=== PATIENT | female | born 1955 | race Caucasian/White ===

== ENCOUNTER 2017-10-09 10:55 | Emergency (ER) | payer OTHER ==
[~2017-10-09] VITALS: Ht 167.6 cm; Wt 54.4 kg
[~2017-10-09 10:55] MED LIST: ABILIFY2 MG PO; LEVSIN-SL0.125 MG SL; ZOFRAN ODT4 M1 SL; ZOLPIDEM TARTRA10 M1 PO
--- NOTE | 2017-10-09 11:29 | ED MVC/FALL/TRAUMA COMPLAINT ---
History of Present Illness General Chief Complaint: Fall Stated Complaint: FALL Source: patient Exam Limitations: no limitations Vital Signs & Intake/Output Vital Signs & Intake/Output Vital Signs Date Time Temp Pulse Resp B/P B/P Pulse O2 O2 Flow FiO2 Mean Ox Delivery Rate 10/09 1256 98.5 59 18 102/54 97 10/09 1102 98.9 64 18 107/53 95 Room Air Allergies Coded Allergies: Penicillins (UNKNOWN 11/16/15) Sulfa (Sulfonamide Antibiotics) (UNKNOWN 11/16/15) acetaminophen (From PERCOCET) (UNKNOWN 11/16/15) codeine (UNKNOWN 11/16/15) morphine (UNKNOWN 11/16/15) oxycodone (From PERCOCET) (UNKNOWN 11/16/15) penicillin V (UNKNOWN 11/16/15) Reconcile Medications Aripiprazole (Abilify) 2 MG TABLET 1 TAB PO DAILY MENTAL HEALTH (Reported) Zolpidem Tartrate 10 MG TABLET 1 TAB PO QPM SLEEP (Reported) Triage Note: BIBA FROM [facility] FOR A FALL. PER PT SHE STEPPED OVER CINDERBLOCKS AND THEY WERE NOT STABLE AND SHE FELL FACE FORWARD OVER THEM. PT C/O CHIN PAIN AND NECK PAIN. UNABLE TO SEE ANY INJURIES TO NECK BECAUSE COLLAR WAS APPLIED BY EMS PRIOR TO ARRIVAL. PT DENIES ANY OTHER COMPLAINTS AT THIS TIME. NEG LOC. UNKNOWN BLOOD THINNERS. PT DENIES CP, SOB, OR DIZZINESS PRIOR TO THE FALL OR AT THIS TIME. Triage Nurses Notes Reviewed? yes Onset: Just prior to arrival Duration: hour(s): Timing: single episode today Severity: moderate Injuries/Fall Location: face, neck Method of Injury: fall Loss of Consciousness: no loss of consciousness HPI: 62yo female with hx of depression and anxiety BIBA to ED after fall at [employer] today. Patient states that she was stepping over a cinder blocks which became unstable and caused her to fall forward. Patient fell forward landing on her chin. She did not lose consciousness or blackout during the fall. Patient reports pain and chin as well as posterior neck. She reports mild frontal headache. Patient did not get up after the fall, EMS evaluated her and placed C- spine collar. Prior to the fall the patient was in her usual state of health. She denies visual changes, abdominal pain, vomiting, back pain, pleuritic pain, chest pain, dyspnea. No dizziness or other symptoms prior to her fall. (Darlyn Tolbert) Past History Travel History Traveled to [place] past 21 day No Medical History Any Pertinent Medical History? see below for history Neurological: NONE EENT: NONE Cardiovascular: HYPOTENSION Respiratory: NONE Gastrointestinal: IBS ? 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 No (Darlyn Tolbert) Review of Systems Review of Systems Constitutional: Reports: no symptoms. Eyes: Reports: no symptoms. Ears, Nose, Throat, Mouth: Reports: no symptoms. Respiratory: Reports: no symptoms. Cardiovascular: Reports: no symptoms. Gastrointestinal/Abdominal: Reports: no symptoms. Genitourinary: Reports: no symptoms. Musculoskeletal: Reports: see HPI. Skin: Reports: no symptoms. Neurological/Psychological: Reports: see HPI. All Other Systems: Reviewed and Negative (Darlyn Tolbert) Physical Exam Physical Exam General Appearance: well developed/nourished, no apparent distress, alert, awake Head: tenderness and mild swelling to chin, no bleeding Eyes: Bilateral: normal appearance, PERRL, EOMI. Ears, Nose, Throat, Mouth: hearing grossly normal, moist mucous membrane Neck: normal inspection, supple, full range of motion, mild c-spine tenderness, no step offs or gross deformity Respiratory: normal breath sounds, chest non-tender, no respiratory distress, lungs clear Cardiovascular: regular rate/rhythm Gastrointestinal: normal bowel sounds, soft, non-tender, no organomegaly Back: normal inspection, normal range of motion, no vertebral tenderness Extremities: normal range of motion Neurologic/Psych: awake, alert, oriented x 3, grocery carrier II-XII nml as tested Skin: intact, normal color, warm/dry Core Measures ACS in differential dx? No CVA/TIA Diagnosis No Sepsis Present: No Sepsis Focused Exam Completed? No (Darlyn Tolbert) Progress Differential Diagnosis: C/T/L spine injury, ICH, mandible fracture, concussion Plan of Care: Patient's CT imaging is within normal limits, no acute abnormality. Patient had mechanical fall prior to arrival. She declines Tylenol and ibuprofen here in the emergency department. Patient is neurologically intact, no focal neurologic deficit, she is answering questions readily. Patient ambulatory here with steady gait. She feels ready to go home at this time. Patient was given strict return precautions. She agrees with the plan of care. Diagnostic Imaging: Viewed by Me: CT Scan. Discussed w/RAD: CT Scan. Radiology Impression: PATIENT: JEREMIAS DEL ROSARIO PRESENT AGE: 62 PATIENT ACCOUNT NO: [id number] : 54 LOCATION: [facility] ORDERING PHYSICIAN: Darlyn WILDE SERVICE DATE: 10/09/17 EXAM TYPE: CAT - CT CERV SPINE WO IV CONTRAST; CT HEAD WO IV CONTRAST; CT MAXILLOFACIAL W/O CON CT HEAD WITHOUT IV CONTRAST CT CERVICAL SPINE WITHOUT IV CONTRAST CT MAXILLOFACIAL WITHOUT IV CONTRAST INDICATION: Status post fall onto face/chin. COMPARISON: Head CT 03/03/2015. TECHNIQUE: Multidetector CT acquisitions of the head, maxillofacial region, and cervical spine were obtained without IV contrast. Multiplanar reformats were acquired and utilized for image interpretation. FINDINGS: HEAD: There is no intracranial hemorrhage, hydrocephalus, extra-axial surface collection, midline shift, or other herniation pattern. Luevano to white matter differentiation is diffusely maintained without evidence of an evolved acute territorial infarct. The basilar cisterns are preserved. No significant soft tissue abnormality. No acute osseous abnormality. MAXILLOFACIAL: The mandible, maxilla, pterygoid plates, nasal bones , zygomatic arches, paranasal sinus calderon, and bony orbits are intact. No acute osseous abnormality within the maxillofacial region. A few posterior left ethmoid air cells are opacified. The remaining paranasal sinuses and the mastoid air cells are clear. There is premandibular/submental soft tissue swelling. CERVICAL SPINE: There is anatomic alignment of the vertebral bodies and posterior elements. There is premandibular/submental soft tissue swelling. There is no acute fracture and there is no acute subluxation. The craniocervical and atlantoaxial articulations are normal. There is no prevertebral soft tissue swelling. No significant soft tissue abnormality within the neck. The visualized lung apices are clear. IMPRESSION: 1. No acute intracranial abnormality. 2. No acute osseous abnormality within the cervical spine. Mild cervical spondylosis. 3. No acute osseous abnormality within the maxillofacial region. There is premandibular/submental soft tissue swelling. DICTATED BY: Zhou Birmingham MD DATE/TIME DICTATED:10/09/171226 PICKING SUPERVISOR:REBECCA DATE/TIME TRANSCRIBED:10/09/171226 CONFIDENTIAL, DO NOT COPY WITHOUT APPROPRIATE AUTHORIZATION. <Electronically signed in Other Vendor System> SIGNED BY: Zhou Birmingham MD 10/09/17 4004 (Darlyn Tolbert) Departure Departure Disposition: HOME OR SELF CARE Condition: Stable Clinical Impression Primary Impression: Fall Qualifiers: Encounter type: initial encounter Qualified Code: W19.XXXA - Unspecified fall, initial encounter Secondary Impressions: Chin contusion Qualifiers: Encounter type: initial encounter Qualified Code: S00.83XA - Contusion of other part of head, initial encounter Referrals: Martina Solis MD (PCP/Family) Additional Instructions: Take Tylenol or ibuprofen as prescribed as needed for pain and swelling. Apply ice to chin intermittently. Any worsening symptoms such as increasing pain, headache, visual changes, vomiting please return to the emergency department. Please note that there might be incidental findings in your evaluation that are unrelated to the current emergency department visit. Please notify your primary care doctor about this emergency department visit in order to obtain and review all of the testing performed so that these incidental findings can be monitored as needed. If you had an x-ray performed, please understand that some fractures may not be seen on the initial set of x-rays. If your symptoms persist you might need a repeat set of x-rays to check for such a fracture. If you had a laceration evaluated, please understand that foreign bodies such as glass or wood may not be visible to the naked eye or on plain x-rays. If the wound becomes red, swollen, increasingly more painful or if there is any drainage from the wound, please have it reevaluated by a physician for the possibility of a retained foreign body. If you're unable to follow up as outlined in the discharge instructions please return to the emergency department. Thank you for choosing the [facility] Emergency Department for your care. It was a pleasure to serve you today. Departure Forms: Customer Survey General Discharge Information (Darlyn Tolbert) PA/REMELT PAN TANK OPERATOR Co-Sign Statement Statement: ED Attending supervision documentation- [] I saw and evaluated the patient. I have also reviewed all the pertinent lab results and diagnostic results. I agree with the findings and the plan of care as documented in the PA's/REMELT PAN TANK OPERATOR's documentation. [X] I have reviewed the ED Record and agree with the PA's/REMELT PAN TANK OPERATOR's documentation. [] Additions or exceptions (if any) to the PAs/REMELT PAN TANK OPERATOR's note and plan are summarized below: [] (Zhou Parmar DO)
--- NOTE | 2017-10-09 12:55 | CT SCAN REPORT ---
CT HEAD WITHOUT IV CONTRAST CT CERVICAL SPINE WITHOUT IV CONTRAST CT MAXILLOFACIAL WITHOUT IV CONTRAST INDICATION: Status post fall onto face/chin. COMPARISON: Head CT 03/03/2015. TECHNIQUE: Multidetector CT acquisitions of the head, maxillofacial region, and cervical spine were obtained without IV contrast. Multiplanar reformats were acquired and utilized for image interpretation. FINDINGS: HEAD: There is no intracranial hemorrhage, hydrocephalus, extra-axial surface collection, midline shift, or other herniation pattern. Luevano to white matter differentiation is diffusely maintained without evidence of an evolved acute territorial infarct. The basilar cisterns are preserved. No significant soft tissue abnormality. No acute osseous abnormality. MAXILLOFACIAL: The mandible, maxilla, pterygoid plates, nasal bones, zygomatic arches, paranasal sinus calderon, and bony orbits are intact. No acute osseous abnormality within the maxillofacial region. A few posterior left ethmoid air cells are opacified. The remaining paranasal sinuses and the mastoid air cells are clear. There is premandibular/submental soft tissue swelling. CERVICAL SPINE: There is anatomic alignment of the vertebral bodies and posterior elements. There is premandibular/submental soft tissue swelling. There is no acute fracture and there is no acute subluxation. The craniocervical and atlantoaxial articulations are normal. There is no prevertebral soft tissue swelling. No significant soft tissue abnormality within the neck. The visualized lung apices are clear. IMPRESSION: 1. No acute intracranial abnormality. 2. No acute osseous abnormality within the cervical spine. Mild cervical spondylosis. 3. No acute osseous abnormality within the maxillofacial region. There is premandibular/submental soft tissue swelling.
[2017-10-09 12:56] VITALS: BP 102/54
== END 2017-10-09 13:32 ==
LOC: ERH 10:55
DX: S00.83XA Contusion of other part of head, initial encounter (principal); M54.2 Cervicalgia; R51 Headache; W19.XXXA Unspecified fall, initial encounter; Y93.9 Activity, unspecified; Y92.512 Supermarket, store or market as the place of occurrence of the external cause

== ENCOUNTER 2017-10-17 16:57 | Inpatient (IN) | payer OTHER ==
[~2017-10-17] VITALS: Ht 167.6 cm; Wt 51.7 kg
--- NOTE | 2017-10-17 18:01 | ED AMS/SEIZURE/WEAK/DIZZY ---
See Addendum History of Present Illness General Chief Complaint: Altered Mental Status Stated Complaint: AMS, INCREASED FALLS Source: patient, family, friend Exam Limitations: no limitations Vital Signs & Intake/Output Vital Signs & Intake/Output Vital Signs Date Time Temp Pulse Resp B/P B/P Pulse O2 O2 Flow FiO2 Mean Ox Delivery Rate 10/17 1752 98.1 10/17 1709 67 18 110/58 97 Room Air Allergies Coded Allergies: Penicillins (UNKNOWN 11/16/15) Sulfa (Sulfonamide Antibiotics) (UNKNOWN 11/16/15) acetaminophen (From PERCOCET) (UNKNOWN 11/16/15) codeine (UNKNOWN 11/16/15) morphine (UNKNOWN 11/16/15) oxycodone (From PERCOCET) (UNKNOWN 11/16/15) penicillin V (UNKNOWN 11/16/15) Reconcile Medications Aripiprazole (Abilify) 2 MG TABLET 1 TAB PO DAILY MENTAL HEALTH (Reported) Zolpidem Tartrate 10 MG TABLET 1 TAB PO QPM SLEEP (Reported) Triage Note: PT BIBA FROM HOME FOR WEAKNESS, POOR APPETITE, SINCE HAVING A TRIP AND FALL LAST FRIDAY. PT SONS TATES STARTING TODAY, BUT UNSURE OF EXACT TIME SHE HAS CALLED HIM HIS UNCLES NAME, BUT IS EASILY REORIENTED. SON ALSO STATES HER SPEACH HAS BEEN SLIGHTLY SLURRED. EMS CINNCINATTI WAS NAEGATIVE. PT ARRIVES ALERT AND ORIENTED, SPEACH CLEAR, AND NO DRIFT IN ARMS AND LEGS. EMS STATES SHE WAS ORTHOSTASIS + AND BS 91. PT ALSO HAS HAD MULTIPLE FALLS SINCE FIRST FALL. NO HEAD OR NECK TRAUMA NOTED Triage Nurses Notes Reviewed? yes Unable To Obtain Hx Due To: patient confusion Onset: Last week Duration: week(s): Timing: multiple episodes today Severity: moderate HPI: 62-year-old female history of depression presenting with family, and a close friend for evaluation of altered mental status and multiple falls. Family reports that patient had a fall 1 week ago at the grocery store, fell onto her face. She was seen here had a workup including a CT head which was negative. Since that time patient has had progressive confusion, generalized weakness, additional falls, and delusions. Patient's son reports that she has been confusing him with his other sibling, waking up his siblings in the middle of the night to go to school, and has been confined largely to bed due to generalized weakness. P.o. intake has also been very poor. Family reports that patient has had depression for years but has never presented in this manner. No r recent abrupt weight loss, fevers, abdominal pain, dysuria, cough, cold or heat intolerance. Patient, family and friend denies that patient uses alcohol or other illicit drugs. She does take Ambien at 6 PM which she has been taking for some time. Past History Travel History Traveled to [place] past 21 day No Medical History Blood Transfusion Hx: No Any Pertinent Medical History? see below for history Neurological: NONE EENT: NONE Cardiovascular: HYPOTENSION Respiratory: NONE Gastrointestinal: IBS ? 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 Yes (H/o Depression) Review of Systems Review of Systems Constitutional: Reports: malaise, weakness (Generalized). Denies: chills, diaphoresis, fever. EENTM: Reports: no symptoms. Respiratory: Reports: no symptoms. Cardiovascular: Reports: no symptoms. GI: Reports: no symptoms. Genitourinary: Reports: no symptoms. Musculoskeletal: Reports: no symptoms. Skin: Reports: no symptoms. Neurological/Psychological: Reports: anxiety, confusion, depressed. Hematologic/Endocrine: Reports: no symptoms. Immunologic/Allergic: Reports: no symptoms. All Other Systems: Reviewed and Negative Physical Exam Physical Exam General Appearance: no apparent distress, alert, awake, thin Head: atraumatic, normal appearance Eyes: Bilateral: normal appearance, PERRL, EOMI. Ears, Nose, Throat: Dry oral mucosa Respiratory: normal breath sounds, chest non-tender, no respiratory distress, quiet respiration, lungs clear Cardiovascular: regular rate/rhythm Gastrointestinal: soft, non-tender, no organomegaly Back: normal inspection, no vertebral tenderness Extremities: normal range of motion, pelvis stable Neurologic/Psych: awake, alert, depressed affect, Difficulty following commands. Unable to perform serial 7's. Remembers 1/3 objects at 5 minutes. There is normal sensation and strength in all 4 extremities. Core Measures ACS in differential dx? No CVA/TIA Diagnosis Yes Sepsis Present: No Sepsis Focused Exam Completed? No Progress Differential Diagnosis: dehydration, electrolyte imbalance, intracranial Hem., intracranial mass/tumor, UTI/pyelo Plan of Care: Orders Procedure Date/time Status URINE DRUG SCREEN FOR ER ONLY 10/17 1734 Active URINALYSIS 10/17 1734 Active TSH REFLEX 10/17 1734 Active AMMONIA 10/17 1734 Active MAGNESIUM 10/17 1734 Active ETHANOL 10/17 1734 Active COMPREHENSIVE METABOLIC PANEL 10/17 1734 Active CBC WITHOUT DIFFERENTIAL 10/17 1734 Complete EKG 10/17 1734 Active Laboratory Tests 10/17/17 1800: Anion Gap 14, Estimated GFR > 60, BUN/Creatinine Ratio 21.1, Glucose 89, Calcium 9.3, Magnesium 2.0, Total Bilirubin 0.4, AST 13 L, ALT 22, Alkaline Phosphatase 58, Ammonia < 9 L, Total Protein 6.5, Albumin 4.1, Globulin 2.4, Albumin/ Globulin Ratio 1.7, TSH &T3 &Free T4 Intrp Pending, CBC w Diff NO MAN DIFF REQ, RBC 4.51, MCV 86.8, MCH 29.1, MCHC 33.6, RDW 13.0, MPV 6.0 L, Gran % 53.6, Lymphocytes % 37.0, Monocytes % 6.7, Eosinophils % 2.3, Basophils % 0.4, Absolute Granulocytes 3.0, Absolute Lymphocytes 2.1, Absolute Monocytes 0.4, Absolute Eosinophils 0.1, Absolute Basophils 0, Serum Alcohol < 10.0 MDM I am concerned about pt's progressive decline, frequent falls and new confusion. On my exam she is distinctily confused, has difficulty at times following even basic instructions, although at other times seems somewhat coherent. Will obtain labs including ammonia, tsh/reflex and urine tox, CT head, UA, CXR. Given progressive decline pt will require admission for further workup of AMS and failure to thrive, and PT evaluation given recent falls. 7:00pm Labs largely unremarkable. Still awaiting thyroid panel and urine. Will need admission for PT evaluation and further workup of AMS. Signed out to Dr. Galvez. CXR Impression: no acute abnormality Pre-Hospital EKG: none Initial ED EKG: normal intervals, normal p-waves, normal sinus rhythm, rate (59) , LAFB Departure Departure Disposition: STILL A PATIENT Condition: Stable Clinical Impression Primary Impression: Altered mental status Qualifiers: Altered mental status type: delirium Qualified Code: R41.0 - Disorientation, unspecified Secondary Impressions: Falls frequently Referrals: Martina Solis MD (PCP/Family) Departure Forms: Customer Survey General Discharge Information
--- NOTE | 2017-10-17 18:07 | RADIOLOGY REPORT ---
EXAMINATION: CHEST 1 VIEW CLINICAL INFORMATION: Altered mental status. COMPARISON: None. TECHNIQUE: An AP view of the chest is provided. FINDINGS: The cardiac silhouette is not enlarged. The mediastinal and hilar contours are unremarkable. There are neither pleural effusions nor pneumothoraces. There are no consolidations. The osseous structures are unremarkable. IMPRESSION: No evidence for acute disease.
--- NOTE | 2017-10-17 18:37 | CT SCAN REPORT ---
EXAMINATION: CT HEAD WITHOUT CONTRAST CLINICAL INFORMATION: Confusion. Falls. Trauma. COMPARISON: 10/09/2017. TECHNIQUE: Contiguous helical images of the brain were obtained without IV contrast. Multiplanar reconstructions were performed. DLP: 604 mGy-cm. FINDINGS: There are no pathologic extra-axial fluid collections. The lateral, third, fourth ventricles are nondilated and concordant with the appearance of the sulci. There is no evidence for acute intraparenchymal hemorrhage or infarct. There is neither mass nor mass effect. There is no shift of midline structures. The paranasal sinuses and mastoid air cells are clear. There are no osseous lesions. IMPRESSION: No evidence for acute intracranial injury.
[2017-10-17 18:51] LABS: ABSOLUTE BASOPHIL COUNT 0 /CUMM (0.0-0.2); ABSOLUTE EOSINOPHIL COUNT 0.1 /CUMM (0.0-0.7); ABSOLUTE LYMPH COUNT 2.1 /CUMM (1.2-3.4); ABSOLUTE MONOCYTE COUNT 0.4 /CUMM (0.10-0.60); BASOPHIL % 0.4 % (0.0-2.0); EOSINOPHIL % 2.3 % (0-5); GRANULOCYTE % 53.6 % (42.2-75.2); HEMATOCRIT 39.1 % (37-47); MEAN CORPUSCULAR HGB 29.1 PG (27.0-31.0); MEAN CORPUSCULAR HGB CONC 33.6 G/DL (33.0-37.0); MEAN CORPUSCULAR VOLUME 86.8 FL (81.0-99.0); PLATELET COUNT 307 /CUMM (130-400); RED BLOOD CELL CT 4.51 /CUMM (4.20-5.40); WHITE BLOOD CELL COUNT 5.6 /CUMM (4.8-10.8)
--- NOTE | 2017-10-17 20:06 | History & Physical ---
Tia Tracy MD 10/17/17 2006: General Information and HPI MD Statement: I have seen and personally examined JEREMIAS DEL ROSARIO and documented this H&P. The patient is a 62 year old F who presented with a patient stated chief complaint of altered mental status Source of Information: patient, family, EMS Exam Limitations: confusion History of Present Illness: This is a 62-year-old female with a past medical history significant for hypothyroidism currently not on medication, several bouts of interstitial cystitis bleeding, irritable bowel syndrome, depression/anxiety that is brought in by ambulance from home for complaints of altered mental status, weakness, and increased falls in the past 2 weeks. Much of the history is given by the patient's son and friend as she is confused. The patient lives at home with her two adopted daughters and a similarly-aged female friend. Patient does have a history of the past of "clusters of falls", but began falling more during the past 2 weeks. 2 weeks ago she fell in the bathtub and 1 week ago she tripped over cinder blocks at [employer]. Both times she denies losing consciousness. When she fell in the bathtub she fell backwards and hit the back of her head. When she fell at [employer] she states that she fell forward, bruising her chin and arms. She denies any overt seizure activity, convulsions. She has had about 6 other falls, 3 of them being yesterday when she slipped on her silk bathrobe out of bed. She denies any loss of vision, focal weakness. Patient denied any cloudy mentation but her son and friend disagree. They state that for the past week she has been more acutely confused. Her son has noticed that her speech has been started on the phone cannot understand her. She has also had questionable headaches for the past 1-2 weeks. She states that her headaches are usually in the front, throbbing, rated 6-9 out of 10, nothing helps, light and sound make them worse. The patient states that she has had double vision for the past 3 years and has had recent workup by an horses or mules teamster who stated that her prescription only changed a slight bit recently, no other issues with her eyes. The patient denies any change in hearing. The patient states that her mood recently has been "good" and rates it a 7 or 8 out of 10. However her family does not see this. They think she is acting depressed. She denies any thoughts of harming herself or others. She has not ingested any drugs or substances, no new medications. Her family states that her mood has been very labile recently. They also state that the patient has had a poor appetite since her falls began and has spent most of her time in bed with 2 white noise machines on at all times of day. In the past she had used these white noise machines only at night. The patient states that she "cannot get out of bed" as she is too weak. The patient's family state that the patient has also been "seeing things wrong". They state that she has been waking up her daughters to go to school at 3 AM and set of 6 AM. They state that the patient knows that it is 3 AM but for some reason thinks it is the time for them to make up for school, no issues with actually reading the time. The son states that she also has been calling him the wrong name. They also state that her speech has been slightly slurred and slow at times. The patient has a history of depression for years. She currently takes Abilify, Wellbutrin, was taking Klonopin until 2 weeks ago when she "just decided that she did not want her life to be like that". She does not know how long she has been taking Wellbutrin and Abilify. The patient also takes Ambien at 6 PM most days. She also takes several vitamins including vitamin D, vitamin C, magnesium , fish oil. The patient denies any nausea, vomiting, abdominal pain, diarrhea, constipation, cough, shortness of breath, chest pain, bleeding, dysuria, hematuria. The patient has had workup before for question of seizure, EEG in 2008 which was normal. The patient's son states that she only rarely uses alcohol, has never used drugs which the patient endorses, and has a very remote history of smoking 3 cigarettes per day. The patient has a past surgical history of bilateral shoulder surgeries, cholecystectomy a year ago which she apparently lost 35 pounds after for decreased appetite. Of note patient has a family history of Alzheimer's disease in her father at age 58. She has a family history of depression and alcoholism. Allergies/Medications Allergies: Coded Allergies: Penicillins (UNKNOWN 11/16/15) Sulfa (Sulfonamide Antibiotics) (UNKNOWN 11/16/15) acetaminophen (From PERCOCET) (UNKNOWN 11/16/15) codeine (UNKNOWN 11/16/15) morphine (UNKNOWN 11/16/15) oxycodone (From PERCOCET) (UNKNOWN 11/16/15) penicillin V (UNKNOWN 11/16/15) Home Med list Aripiprazole (Abilify) 2 MG TABLET 1 TAB PO DAILY MENTAL HEALTH (Reported) Zolpidem Tartrate 10 MG TABLET 1 TAB PO QPM SLEEP (Reported) Compliance With Home Meds: UNKNOWN Past History Travel History Traveled to [place] past 21 day No Medical History Blood Transfusion Hx: No Neurological: NONE EENT: NONE Cardiovascular: HYPOTENSION Respiratory: NONE Gastrointestinal: IBS Hepatic: NONE Renal: NONE Musculoskeletal: NONE Psychiatric: depression, ANXIETY Endocrine: NONE, hyperthyroidism, was on synthroid in past Blood Disorders: NONE Cancer(s): NONE CANVAS CUTTER/Reproductive: NONE Surgical History Surgical History: cholecystectomy, hysterectomy, BREAST REDUCTION Past Family/Social History Psychosocial History Where do you live? Home Who Do You Live With? child Services at Home: None ETOH Use: denies use Illicit Drug Use: denies illicit drug use Functional Ability ADLs Independent: dressing, eating, toileting, bathing. Ambulation: independent Review of Systems Review of Systems Constitutional: Reports: weakness, unexplained weight loss. EENTM: Reports: double vision. Cardiovascular: Reports: no symptoms. Respiratory: Reports: no symptoms. GI: Reports: no symptoms. Genitourinary: Reports: no symptoms. Musculoskeletal: Reports: joint pain (SHOULDERS). Skin: Reports: no symptoms. Neurological/Psychological: Reports: confusion, emotional problems, weakness. Hematologic/Endocrine: Reports: no symptoms. Immunologic/Allergic: Reports: no symptoms. Exam & Diagnostic Data Last 24 Hrs of Vital Signs/I&O Vital Signs Date Time Temp Pulse Resp B/P B/P Pulse O2 O2 Flow FiO2 Mean Ox Delivery Rate 10/17 2233 97.5 73 98/62 98 Room Air 10/171 62 18 103/56 98 Room Air 10/18 2003 96 Room Air 10/17 2002 97.6 60 18 99/52 96 Room Air 10/17 1752 98.1 10/17 1709 67 18 110/58 97 Room Air Physical Exam General Appearance Alert, Oriented X3, Cooperative, No Acute Distress Skin No Rashes, No Breakdown, No Significant Lesion Skin Temp/Moisture Exam: Warm/Dry Sepsis Skin Exam (color): Normal for Ethnicity HEENT Atraumatic, PERRLA, EOMI, Mucous Membr. moist/pink, NO NYSTAGMUS, no neck stiffness Neck Supple, No thryomegaly Lymphatic Axillary nl Cardiovascular Regular Rate, Normal S1, Normal S2, No Murmurs Lungs Clear to Auscultation, Normal Air Movement Abdomen Normal Bowel Sounds, Soft, No Tenderness, No Hepatospenomegaly Neurological Strength at 5/5 X4 Ext, Normal Tone, Sensation Intact, Patient has shuffling, slow, unsure gait. slow speech with very mild downturning corner of left side mouth. cannot blow up cheeks or smile or raise eyebrows. good strength with shutting eyes. no uvula deviation. strength 4/5 in upper extremities, 5/5 in lower. sensation intact throughout. decreased hearing in right ear secondary to wax. no issues with proprioception. no dysdiadechokinesia. patient speaks slowly with vacillation between clear and confused affect. Extremities No Clubbing, No Cyanosis, No Edema, Normal Pulses, No Tenderness/ Swelling, no rigidity Vascular Normal Pulses, Pulses Symmetrical Sepsis Peripheral Pulse Location: Radial Sepsis Peripheral Pulse Exam: Normal Sepsis Cap Refill Exam: <2 Sec Last 24 Hrs of Labs/Jon: Laboratory Tests 10/17/17 2220: Urine Opiates Screen < 100, Methadone Screen < 40, Barbiturate Screen < 60, Ur Phencyclidine Scrn < 6.00, Amphetamines Screen 618, U Benzodiazepines Scrn 167, Urine Cocaine Screen < 50, Urine Cannabis Screen < 5.00, Urine Color YEL, Urine Clarity HAZY H, Urine pH 6.0, Ur Specific [place] 1.020, Urine Protein NEG, Urine Ketones NEG, Urine Nitrite NEG, Urine Bilirubin NEG, Urine Urobilinogen 0.2, Ur Leukocyte Esterase LARGE H, Ur Microscopic SEDIMENT EXAMINED, Urine RBC 3-5, Urine WBC > 75 H, Ur Epithelial Cells FEW, Urine Bacteria FEW H, Urine Hemoglobin SMALL H, Urine Glucose NEG 10/17/17 1800: Anion Gap 14, Estimated GFR > 60, BUN/Creatinine Ratio 21.1, Glucose 89, Serum Osmolality 306 H, Calcium 9.3, Magnesium 2.0, Total Bilirubin 0.4, Direct Bilirubin 0.1, AST 13 L, ALT 22, Alkaline Phosphatase 58, Ammonia < 9 L, Total Protein 6.5, Albumin 4.1, Globulin 2.4, Albumin/Globulin Ratio 1.7, Vitamin B12 431, Folate 7.1, TSH &T3 &Free T4 Intrp 3.500, Cortisol PM Sample 3.8, CBC w Diff NO MAN DIFF REQ, RBC 4.51, MCV 86.8, MCH 29.1, MCHC 33.6, RDW 13.0, MPV 6.0 L, Gran % 53.6, Lymphocytes % 37.0, Monocytes % 6.7, Eosinophils % 2.3, Basophils % 0.4, Absolute Granulocytes 3.0, Absolute Lymphocytes 2.1, Absolute Monocytes 0.4, Absolute Eosinophils 0.1, Absolute Basophils 0, ESR Westergren 5, Serum Alcohol < 10.0 Assessment/Plan Assessment: This is a 62-year-old female with a past medical history significant for hypothyroidism currently not on medication, several bouts of interstitial cystitis bleeding, irritable bowel syndrome, depression/anxiety that is brought in by ambulance from home for complaints of altered mental status, weakness, and increased falls in the past 2 weeks. Patient's confusion appears fairly new and acutely worsening but her falls and mood disorders seem more chronic. Possibilities for patient's altered mental status include infection, metabolic/ toxic, stroke, vitamin deficiency, abnormal thyroid levels, intracranial pathology including tumor, stroke, vasculitis, or early onset Alzheimer's. Other possibilities are polypharmacy, Klonopin withdrawal seizure (with addition of lower seizure threshold secondary to Wellbutrin), posttraumatic dementia, atypical depression. It is important to note that most of her issues are with executive functioning and do suggest a widespread frontal cortex issue which could possibly be fronto-temporal dementia. Normal pressure hydrocephalus would also be a possibility as gait and personality have been effected. She however does not have urinary symptoms. Mini Mental Status Exam 21 and MOCA 15. Patient is alert and oriented x3. In the ED patient vitals were found to be heart rate 67, respiratory rate 18, blood pressure 110/58, 97% on room air. Labs were normal including thyroid function, ammonium level. U tox was negative. UA showed bacteria and leukocyte esterase although patient is asymptomatic. She was given a 1 L normal saline bolus. CT of the head was negative for any acute pathology. Chest x-ray was negative for any acute pathology. EKG showed normal sinus rhythm at a rate of 59 with poor R-wave progression and a QTC of 416 unchanged from prior study. ESR was 5. P.m. cortisol is low at 3.8. B12 and folate levels are normal. Patient is orthostatic positive with blood pressure 98/62 heart rate 73 laying down, blood pressure 100/60, heart rate 69 sitting, blood pressure 60/50, heart rate 88 on standing. Plan -Neurochecks every 4 -Start fluids half-normal saline at a rate of 75, 1 bag as we are unsure of patient's cardiac status -Neuro consult, defer EEG until they see her -MRI -PT eval -Hold drugs that may cause altered mental status like Klonopin and zolpidem -A.m. cortisol level -Serum and urine osm, urine lytes -Urine cultures and blood cultures -Hemoglobin A1c -HIV -LFTs DNR/DNI Regular diet DVT prophylaxis with Alps and Lovenox As Ranked By This Provider Problem List: 1. Falls frequently 2. Altered mental status Qualifiers Altered mental status type: delirium Qualified Code: R41.0 - Disorientation, unspecified Core Measures/Misc (02/23) Acute Coronary Syndrome ACS Diagnosis: No Congestive Heart Failure Congestive Heart Failure Diagnosis No Cerebrovascular Accident CVA/TIA Diagnosis: Yes VTE (View Protocol) VTE Risk Factors Acute Medical Illness No Mechanical VTE Prophylaxis d/t N/A MechProphylax Ordered No VTE Pharm Prophylaxis d/t NA PharmProphylax ordered Sepsis (View protocol) Sepsis Present: No Luiza Soni MD 10/17/172020: Resident Review Statement Resident Statement: examined this patient, discussed with post graduate intern, agreed with post graduate intern Other Findings: This is a 62 yo female with PMH of panic disorder, hypothyroidism, interstitial cystits, SI, multiple falls who comes in or a CC of AMS. She was brought in by her family who has a group meeting regarding her change in behavior over the last 2 weeks. She sustained a fall in [employer] last (description by family is simple trip and fall, witnessed, no LOC, tonic/clonic etc) and since then she has sustained 5-6 falls. Notably, after these falls she is unable to get up due to weakness. Son is a shoe cutter and performed a NIHSS every time and it has always been negative. About two weeks ago she tripped backwards and hit her head while in bath tub. Chief concerns of the family and pt are wrosening memory, increased confusion- she has been calling her son her brother and keeps calling him by diferent names and some slurred speech several times this past week. Last three mornings she has awaken her kids at 3 am to go to school. Per family she has trouble understanding the clock. She can read the time correctly, but can't associate the time with the appropriate activity. She does endorse worse vision but saw pattern fitter two weeks ago and was supposedy told that she was around her baseline. She does have lack of appetite and has 35 lb weight loss in past one year. She has been bed bound for two weeks bc she is afraid of falls. In 2008 she was evaluated for possible seizure and her EEG was negative. Per pt her meds include, Ambien, Klonopin, Wellbutrin, and Abilify. However, claim history also shows Venlafaxine and Flexaril which she did not mention. She has not taken Klonopin in two weeks since she felt like she didn't need to. She has been gradually cutting the dose down over the past year and was down to .5mg / every other day. She denies any SI/HI or overdose on her medications. No n, v , d, cp, dizziness, sob, dysuria, abdominal pain. Physical exam and labs as above Assessment: This is a 62-year-old female with past medical history significant for panic disorder, hypothyroidism, interstitial cystitis, suicidal ideation, multiple falls, who comes in for chief complaint of altered mental status. Head CT shows no acute intracranial pathology. Orthostats + when standing up. In ED we performed a Montral cognitive assessment which gave her a score of 15 out of 30 (nml greater or at 26). It is difficult to differnetiate the acute from chronic presentation. She does have hx of mood disorder and falls but it seems like the confusion and the slurring of speech is acutely different from her baseline. Given hx of early onset dementia in family, and since MMSE 21 and MOCA 15 either Alzheimers or Fronto-temporal dementia is possible as it seems like her deficits are mostly in executive funciton suggesting some kind of global process and not a restricted cortical deficit. However,other entiologies could include NPH, toxic metabolic encephalopathy and seizures as she takes Wellbutrin and recently stopped taking Benzos. PLAN: AMS: Hold Klonopin check lytes check TFT UA UC CBC BMP UTOX EKG/TROPS Physical therapy eval B12 Folate ESR MRI Neuro consult Neuro check Holding all meds. Reassess in AM. DNR/DNI REG DIET CHEM PPX Jeff Estrada 10/18/17 0441: Attending MD Review Statement Attending Statement Attending MD Statement: examined this patient, discuss w/resident/PA/RETAIL OFFICE MANAGER, agreed w/resident/PA/RETAIL OFFICE MANAGER, reviewed EMR data (avail), reviewed images, amended to note Attending Assessment/Plan: CC: Abnormal behavior, Multiple falls PMH: Remote history of hypothyroidism, currently not on medication, panic disorder Patient was brought in by family for abnormal behavior. Patient fell down approximately 2 weeks back, appeared accidental, fell on her chin and did not lose consciousness but since the fall she appears more confused. She is using time track, waking up people at 3 AM in the morning, calling people with different names, intermittent headache and slightly speech and multiple falls. No tremors noted. These changes appear to be sudden in last 2 weeks according to family. Otherwise complete ROS unremarkable Vitals: Temperature 98.1, pulse 67, respiration 18, blood pressure 110/58, saturating 97% on room air. On exam: A O 3, cooperative, no acute distress, neck supple, JVD normal, no lymphadenopathy, mucosa moist, no dependent edema, no obvious skin rashes or inflammation CVS: S1-S2, RRR. RS: Clear to auscultate bilaterally. Abdomen: Soft , NT, ND, bowel sounds present. No focal neurological deficit, no cerebellar signs, no nystagmus, no tremors, gait unsteady, MMSE 21, MOCA 15 CT head: No evidence for acute intracranial injury. CXR: No evidence for acute disease. Assessment and plan 62-year-old female was brought in by family for multiple complaints as mentioned above, including but not limited to multiple falls, acute decline in cognition and time track, decreased recall since last 2 weeks which started after her recent accidental fall. Physical examination is unremarkable but cognition functioning and executed to functioning is markedly reduced MMSE 21, MOCA 15. Unclear etiology of this acute decline, it's possible that family noticed this recently and patient may be suffering it for longer time. Patient will benefit from complete evaluation. Only change in medication is gradual taper of clonazepam and was discontinued 2 weeks back. It's less likely that clonazepam withdrawal causing the symptoms. If symptoms are longer than mentioned by family , then possibilities include Lewy body dementia, frontoparietal dementia, vascular dementia, NPH. U tox unremarkable, alcohol negative. + Multiple falls, acute decline in cognition + History of panic disorder - Admit to general medicine - Orthostatic vitals - MRI brain - HbA1c, B12, TSH, a.m. cortisol, folic acid, HIV - Neurology consult - DVT prophylaxis
[2017-10-17 22:34] VITALS: BP 98/62
--- NOTE | 2017-10-18 03:59 | PN- Housestaff ---
Subjective Follow-up For: AMS Subjective: Saw pt at bedside this AM. She states that she feels like she is in normal health. No acute overnight events or complaints. Review of Systems Constitutional: Denies: chills, weakness. EENTM: Reports: no symptoms. Cardiovascular: Denies: chest pain, palpitations. Respiratory: Reports: no symptoms. Gastrointestinal: Denies: abdominal pain. Genitourinary: Reports: no symptoms. Musculoskeletal: Reports: no symptoms. Objective Last 24 Hrs of Vital Signs/I&O Vital Signs Date Time Temp Pulse Resp B/P B/P Pulse O2 O2 Flow FiO2 Mean Ox Delivery Rate 10/18 0634 97.5 62 18 100/60 97 10/17 2234 97.5 73 98/62 98 Room Air 10/17 2141 62 18 103/56 98 Room Air 10/17 2004 96 Room Air 10/17 2002 97.6 60 18 99/52 96 Room Air 10/17 1752 98.1 10/17 1709 67 18 110/58 97 Room Air Intake & Output 10/18 1600 10/18 0800 10/18 0000 Intake Total 1000 Output Total 300 Balance 700 Intake, IV 1000 Output, Urine 300 Patient 51.71 kg 52.163 kg Weight Weight Bed scale Measurement Method Physical Exam General Appearance: Alert, Oriented X3, Cooperative, No Acute Distress HEENT: Atraumatic, PERRLA, EOMI Neck: Supple Cardiovascular: Regular Rate, Normal S1, Normal S2 Lungs: Normal Air Movement Abdomen: Soft, No Tenderness Neurological: Normal Speech Current Medications: Current Medications Sig/Danielle Start time Last Medication Dose Route Stop Time Status Admin Acetaminophen 650 MG Q6P PRN 10/17 2029 AC PO Enoxaparin Sodium 40 MG DAILY 10/18 0900 AC 10/18 SC 0844 Ibuprofen 600 MG Q6P PRN 10/17 2029 AC PO Sodium Chloride 1,000 ML Q13H 10/17 2315 AC 10/17 IV 10/18 1214 2335 Sodium Chloride 1,000 ML ONCE ONE 10/17 1745 DC 10/17 IV 10/17 1746 1812 Last 24 Hrs of Lab/Jon Results Last 24 Hrs of Labs/Mics: Laboratory Tests 10/18/17 0633: Anion Gap 10, Estimated GFR > 60, BUN/Creatinine Ratio 15.6, Hemoglobin A1c Pending, Troponin I Pending, Cortisol AM Sample Pending, CBC w Diff NO MAN DIFF REQ, RBC 4.05 L, MCV 86.9, MCH 29.0, MCHC 33.4, RDW 12.9, MPV 6.0 L, Gran % 53.7, Lymphocytes % 35.9, Monocytes % 6.9, Eosinophils % 2.8, Basophils % 0.7, Absolute Granulocytes 2.3, Absolute Lymphocytes 1.6, Absolute Monocytes 0.3, Absolute Eosinophils 0.1, Absolute Basophils 0, HIV 1&2 Ab Western Blot Pending 10/17/170: Urine Opiates Screen < 100, Methadone Screen < 40, Barbiturate Screen < 60, Ur Phencyclidine Scrn < 6.00, Amphetamines Screen 618, U Benzodiazepines Scrn 167, Urine Cocaine Screen < 50, Urine Cannabis Screen < 5.00, Urine Color YEL, Urine Clarity HAZY H, Urine pH 6.0, Ur Specific [place] 1.020, Urine Protein NEG, Urine Ketones NEG, Urine Nitrite NEG, Urine Bilirubin NEG, Urine Urobilinogen 0.2, Ur Leukocyte Esterase LARGE H, Ur Microscopic SEDIMENT EXAMINED, Urine RBC 3-5, Urine WBC > 75 H, Ur Epithelial Cells FEW, Urine Bacteria FEW H, Urine Hemoglobin SMALL H, Urine Glucose NEG 10/17/17 1800: Anion Gap 14, Estimated GFR > 60, BUN/Creatinine Ratio 21.1, Glucose 89, Serum Osmolality 306 H, Calcium 9.3, Magnesium 2.0, Total Bilirubin 0.4, Direct Bilirubin 0.1, AST 13 L, ALT 22, Alkaline Phosphatase 58, Ammonia < 9 L, Total Protein 6.5, Albumin 4.1, Globulin 2.4, Albumin/Globulin Ratio 1.7, Vitamin B12 431, Folate 7.1, TSH &T3 &Free T4 Intrp 3.500, Cortisol PM Sample 3.8, CBC w Diff NO MAN DIFF REQ, RBC 4.51, MCV 86.8, MCH 29.1, MCHC 33.6, RDW 13.0, MPV 6.0 L, Gran % 53.6, Lymphocytes % 37.0, Monocytes % 6.7, Eosinophils % 2.3, Basophils % 0.4, Absolute Granulocytes 3.0, Absolute Lymphocytes 2.1, Absolute Monocytes 0.4, Absolute Eosinophils 0.1, Absolute Basophils 0, ESR Westergren 5, Serum Alcohol < 10.0 Assessment/Plan Assessment: Assessment: This is a 62-year-old female with past medical history significant for panic disorder, hypothyroidism, interstitial cystitis, suicidal ideation, multiple falls, who comes in for chief complaint of altered mental status. Head CT shows no acute intracranial pathology. Orthostats + when standing up. In ED we performed a Montral cognitive assessment which gave her a score of 15 out of 30 (nml greater or at 26). It is difficult to differnetiate the acute from chronic presentation. She does have hx of mood disorder and falls but it seems like the confusion and the slurring of speech is acutely different from her baseline. Given hx of early onset dementia in family, and since MMSE 21 and MOCA 15 either Alzheimers or Fronto-temporal dementia is possible as it seems like her deficits are mostly in executive funciton suggesting some kind of global process and not a restricted cortical deficit. However,other entiologies could include NPH, toxic metabolic encephalopathy and seizures as she takes Wellbutrin and recently stopped taking Benzos. PLAN: AMS: Lytes and TFT wnl. Neg UA, utox, b12 nml, nml esr, * Pending HIV * Holding Klonopin * EKG/TROPS * Physical therapy eval * MRI * Neuro consult * Neuro check * Holding all meds. Reassess in AM. DNR/DNI REG DIET CHEM PPX Problem List: 1. Falls frequently 2. Altered mental status Pain Ratin Pain Location: none Pain Goal: Remain pain free Pain Plan: none Tomorrow's Labs & Rationales: cbc bep
--- NOTE | 2017-10-18 04:43 | Admission Certification ---
Admission Certification Certification Statement - As attending physician, I certify that at the time of - admission, based on clinical presentation, severity of - symptoms, need for further diagnostic testing and - therapeutic interventions, and risk of adverse outcomes - without in-hospital treatment, in my clinical assessment, - this patient requires an acute hospital stay for a minimum - of two nights or longer. I have also considered psychsocial - factors such as support system, advanced age, financial - issues, cognitive issues, and failed out-patient treatments, - past re-admission history, safety of patient, and lack of - compliance as applicable. Specific rationale supporting this admission is: Multiple falls, decline in cognition
[2017-10-18 06:34] VITALS: BP 100/60
[2017-10-18 08:25] LABS: ABSOLUTE BASOPHIL COUNT 0 /CUMM (0.0-0.2); ABSOLUTE EOSINOPHIL COUNT 0.1 /CUMM (0.0-0.7); ABSOLUTE GRANULOCYTE CT 2.3 /CUMM (1.4-6.5); ABSOLUTE LYMPH COUNT 1.6 /CUMM (1.2-3.4); ABSOLUTE MONOCYTE COUNT 0.3 /CUMM (0.10-0.60); BASOPHIL % 0.7 % (0.0-2.0); EOSINOPHIL % 2.8 % (0-5); GRANULOCYTE % 53.7 % (42.2-75.2); HEMATOCRIT 35.2 % (37-47); MEAN CORPUSCULAR HGB CONC 33.4 G/DL (33.0-37.0); MEAN CORPUSCULAR VOLUME 86.9 FL (81.0-99.0); PLATELET COUNT 255 /CUMM (130-400); RBC DISTRIBUTION WIDTH 12.9 % (11.5-14.5); RED BLOOD CELL CT 4.05 /CUMM (4.20-5.40); WHITE BLOOD CELL COUNT 4.4 /CUMM (4.8-10.8)
--- NOTE | 2017-10-18 10:07 | MRI REPORT ---
EXAMINATION: MR BRAIN WITHOUT CONTRAST CLINICAL INFORMATION: Altered mental status and confusion. Unsteadiness on feet. COMPARISON: Head CT from 10/17/2017. TECHNIQUE: Multiplanar, multisequence imaging of the brain was performed without contrast. FINDINGS: No diffusion abnormalities are identified to suggest an acute infarct. The ventricles are normal in size. No mass effect or midline shift is seen. Nonspecific minimal bifrontal white matter signal changes may be due to chronic microangiopathy. No extra-axial fluid collections are seen. The brainstem and cerebellum are normal. The gradient refocused acquisition is normal. The craniovertebral junction, marrow signal, and midline structures are normal. The major intracranial flow voids at the level of the [place] are preserved. The dural venous sinus flow voids are maintained. The mastoid air cells are well aerated. There is mild mucosal thickening in the ethmoid sinuses. IMPRESSION: No acute intracranial process. Minimal nonspecific white matter signal changes.
--- NOTE | 2017-10-18 11:36 | PN- Att Addend ---
Attending Addendum Attending Brief Note Patient seen and examined. No issues overnight reported by nursing staff. Remains afebrile and hemodynamically stable. Resting comfortably and not in any acute distress. Patient is eager to be discharged this morning. Orthostatic vitals however are positive. Random cortisol level was obtained this morning and is low for an a.m. level. She denies any dizziness. She denies any chest pain or palpitations. She does admit to frequent falls. She reports that her leg just suddenly gave way. Vital Signs Date Time Temp Pulse Resp B/P B/P Pulse O2 O2 Flow FiO2 Mean Ox Delivery Rate 10/18 0634 97.5 62 18 100/60 97 10/17 2234 97.5 73 98/62 98 Room Air 10/17 2141 62 18 103/56 98 Room Air 10/17 2004 96 Room Air 10/17 2002 97.6 60 18 99/52 96 Room Air 10/17 1752 98.1 10/17 1709 67 18 110/58 97 Room Air General appearance: Well-developed and not in any acute distress. HEENT: Anicteric, no pallor, pupils equal and reactive. Neck: Supple with no jugular venous distention. Heart: S1-S2 regular with no audible murmur. Lungs: Adequate and symmetric air entry bilaterally with no added sounds. Abdomen: Nondistended with normal bowel sounds. Soft, nontender with no palpable masses. Extremities: No pedal edema. No cyanosis. Neurologic: Patient is alert and oriented 3. Cranial nerves II through XII are within normal limits. Power is 4/5 in both upper and lower extremities. Normal deep tendon reflex. Sensation intact. Problems: 1. Orthostatic hypotension 2. Altered mental status; likely secondary to above 2. Recurrent falls; likely secondary to above Recommendations: -Hydrate with normal saline at 1 25 cc an hour for 1 L. -Endocrinology consultation to assess for adrenal insufficiency. -Patient noted to have mild cognitive impairment, follow-up neurology consultation. -Fall precautions. -Physical therapy evaluation.
--- NOTE | 2017-10-18 13:44 | Cons- Neurology ---
General Information and HPI Consulting Request Date of Consult: 10/18/17 Requested By: Jeff Estrada MD History of Present Illness: 62-year-old female admitted to Hospital yesterday after a series of falls and confusion Fall seem to occur about 2 weeks ago; first fall occurred when she fell over backwards and into a tub. She had to be assisted by others to help extricate her from the tub Subsequently she has had a number of falls. On a few instances she fell trying to get out of bed. There was another instance where she tripped at [employer] and brought items from the shelf down There was no significant injuries with falls There was no prodrome or dizziness prior to a fall and no episode of loss of consciousness Over the past week or 2 she was also noted to have increasing confusion She also has had intermittent headaches She has always had some visual difficulties in terms of intermittent diplopia which has been previously evaluated with no clear etiology; there has been some increase in visual difficulty recently She has been on a regimen of Abilify and Wellbutrin. She is not sure of the dose. She also has been on zolpidem 10 mg a day There's been no history of convulsive activity Allergies/Medications Allergies: Coded Allergies: Penicillins (UNKNOWN 11/16/15) Sulfa (Sulfonamide Antibiotics) (UNKNOWN 11/16/15) acetaminophen (From PERCOCET) (UNKNOWN 11/16/15) codeine (UNKNOWN 11/16/15) morphine (UNKNOWN 11/16/15) oxycodone (From PERCOCET) (UNKNOWN 11/16/15) penicillin V (UNKNOWN 11/16/15) Home Med List: Aripiprazole (Abilify) 2 MG TABLET 1 TAB PO DAILY MENTAL HEALTH (Reported) Zolpidem Tartrate 10 MG TABLET 1 TAB PO QPM SLEEP (Reported) Current Medications: Current Medications Sig/Danielle Start time Last Medication Dose Route Stop Time Status Admin Acetaminophen 650 MG Q6P PRN 10/17 2030 AC PO Enoxaparin Sodium 40 MG DAILY 10/18 0900 AC 10/18 SC 0844 Ibuprofen 600 MG Q6P PRN 10/17 2030 AC PO Sodium Chloride 1,000 ML Q8H 10/18 1145 AC 10/18 IV 1307 Sodium Chloride 1,000 ML Q13H 10/17 2315 DC 10/17 IV 10/18 1214 2335 Sodium Chloride 1,000 ML ONCE ONE 10/17 1745 DC 10/17 IV 10/17 1746 1812 Review of Systems Review of Systems: Occasional headaches as above Intermittent diplopia chronic No difficulty speech or swallowing Denies chest pains or breathing difficulties or incontinence No swelling or rash No recent fevers No focal weakness Past History Travel History Traveled to [place] past 21 day No Medical History Blood Transfusion Hx: No Neurological: NONE EENT: NONE Cardiovascular: HYPOTENSION Respiratory: NONE Gastrointestinal: irritable bowel syndrome Hepatic: NONE Renal: NONE Musculoskeletal: falls Psychiatric: depression, ANXIETY Endocrine: NONE, hyperthyroidism, was on synthroid in past Blood Disorders: NONE Cancer(s): NONE 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 Home Who Do You Live With? child Services at Home: None Smoking Status: Never Smoked ETOH Use: denies use Illicit Drug Use: denies illicit drug use Functional Ability ADLs Independent: dressing, eating, toileting, bathing. Ambulation: independent Exam & Diagnostic Data Vital Signs and I&O Vital Signs Date Time Temp Pulse Resp B/P B/P Pulse O2 O2 Flow FiO2 Mean Ox Delivery Rate 10/18 0634 97.5 62 18 100/60 97 10/17 2234 97.5 73 98/62 98 Room Air 10/17 2141 62 18 103/56 98 Room Air 10/17 2004 96 Room Air 10/17 2003 97.6 60 18 99/52 96 Room Air 10/17 1752 98.1 10/17 1709 67 18 110/58 97 Room Air Intake & Output 10/18 1600 10/18 0800 10/18 0000 Intake Total 800 1000 Output Total 400 300 Balance 400 700 Intake, IV 600 1000 Intake, Oral 200 Output, Urine 400 300 Patient 114 lb 115 lb Weight Weight Bed scale Measurement Method father hasd alzheimers disease Physical Exam: Alert Immediate memory difficulty Fund of knowledge mildly impaired Heart sounds normal, no carotid bruit, distal pulses intact Pupils equal reactive, fundi benign, poor upward gaze, visual miranda intact, no facial weakness or facial sensory loss, hearing impairment on right, palate tongue and shoulders intact Mild increase in tone upper extremities, mild postural tremor, gross strength intact exception of possible mild weakness intrinsic hand muscles No sensory loss to light touch bilaterally Deep tendon reflexes hypoactive throughout Coordinative functions upper extremities intact No gait ataxia; loss of arm swelling Last 48 Hours of Lab Results: Laboratory Tests 10/18 10/17 0633 2220 Chemistry Sodium (137 - 145 mmol/L) 141 Potassium (3.5 - 5.1 mmol/L) 4.0 Chloride (98 - 107 mmol/L) 105 Carbon Dioxide (22 - 30 mmol/L) 26 Anion Gap (5 - 16) 10 BUN (7 - 17 mg/dL) 14 Creatinine (0.5 - 1.0 mg/dL) 0.9 Estimated GFR (>60 ml/min) > 60 BUN/Creatinine Ratio (7 - 25 %) 15.6 Hemoglobin A1c (4.2 - 5.8 %) Pending Troponin I (< 0.11 ng/ml) < 0.01 Cortisol AM Sample (4.46 - 22.7 ug/dL) 8.7 Hematology CBC w Diff NO MAN DIFF REQ WBC (4.8 - 10.8 /CUMM) 4.4 L RBC (4.20 - 5.40 /CUMM) 4.05 L Hgb (12.0 - 16.0 G/DL) 11.8 L Hct (37 - 47 %) 35.2 L MCV (81.0 - 99.0 FL) 86.9 MCH (27.0 - 31.0 PG) 29.0 MCHC (33.0 - 37.0 G/DL) 33.4 RDW (11.5 - 14.5 %) 12.9 Plt Count (130 - 400 /CUMM) 255 MPV (7.4 - 10.4 FL) 6.0 L Gran % (42.2 - 75.2 %) 53.7 Lymphocytes % (20.5 - 51.1 %) 35.9 Monocytes % (1.7 - 9.3 %) 6.9 Eosinophils % (0 - 5 %) 2.8 Basophils % (0.0 - 2.0 %) 0.7 Absolute Granulocytes (1.4 - 6.5 /CUMM) 2.3 Absolute Lymphocytes (1.2 - 3.4 /CUMM) 1.6 Absolute Monocytes (0.10 - 0.60 /CUMM) 0.3 Absolute Eosinophils (0.0 - 0.7 /CUMM) 0.1 Absolute Basophils (0.0 - 0.2 /CUMM) 0 Serology HIV 1&2 Ab Western Blot (NONREACTIVE) NONREACTIVE Toxicology Urine Opiates Screen (>2000 NG/ML) < 100 Methadone Screen (>300 NG/ML) < 40 Barbiturate Screen (>200 NG/ML) < 60 Ur Phencyclidine Scrn (>25 NG/ML) < 6.00 Amphetamines Screen (>1000 NG/ML) 618 U Benzodiazepines Scrn (>200 NG/ML) 167 Urine Cocaine Screen (>300 NG/ML) < 50 Urine Cannabis Screen (>50 NG/ML) < 5.00 Urines Urine Color (YEL,AMB,STR) YEL Urine Clarity (CLEAR) HAZY H Urine pH (5.0 - 8.0) 6.0 Ur Specific [place] (1.001 - 1.035) 1.020 Urine Protein (NEG,<30 MG/DL) NEG Urine Ketones (NEG) NEG Urine Nitrite (NEG) NEG Urine Bilirubin (NEG) NEG Urine Urobilinogen (0.1 - 1.0 EU/dl) 0.2 Ur Leukocyte Esterase (NEG) LARGE H Ur Microscopic SEDIMENT EXAMINED Urine RBC (0 - 5 /HPF) 3-5 Urine WBC (0 - 2 /HPF) > 75 H Ur Epithelial Cells (NONE,FEW) FEW Urine Bacteria (NEG/NONE) FEW H Urine Hemoglobin (NEG) SMALL H Urine Glucose (N MG/DL) NEG 10/17 1800 Chemistry Sodium (137 - 145 mmol/L) 144 Potassium (3.5 - 5.1 mmol/L) 4.2 Chloride (98 - 107 mmol/L) 102 Carbon Dioxide (22 - 30 mmol/L) 29 Anion Gap (5 - 16) 14 BUN (7 - 17 mg/dL) 19 H Creatinine (0.5 - 1.0 mg/dL) 0.9 Estimated GFR (>60 ml/min) > 60 BUN/Creatinine Ratio (7 - 25 %) 21.1 Glucose (65 - 99 mg/dL) 89 Serum Osmolality (285 - 295 MOSM/KG) 306 H Calcium (8.4 - 10.2 mg/dL) 9.3 Magnesium (1.6 - 2.3 mg/dL) 2.0 Total Bilirubin (0.2 - 1.3 mg/dL) 0.4 Direct Bilirubin (< 0.4 mg/dL) 0.1 AST (14 - 36 U/L) 13 L ALT (9 - 52 U/L) 22 Alkaline Phosphatase (<127 U/L) 58 Ammonia (9 - 30 umol/L) < 9 L Total Protein (6.3 - 8.2 g/dL) 6.5 Albumin (3.5 - 5.0 g/dL) 4.1 Globulin (1.9 - 4.2 gm/dL) 2.4 Albumin/Globulin Ratio (1.1 - 2.2 %) 1.7 Vitamin B12 (239 - 931 pg/mL) 431 Folate (2.76 - 20.0 ng/mL) 7.1 TSH &T3 &Free T4 Intrp (0.270 - 4.20 uIU/mL) 3.500 Cortisol PM Sample (1.7 - 14.1) 3.8 Hematology CBC w Diff NO MAN DIFF REQ WBC (4.8 - 10.8 /CUMM) 5.6 RBC (4.20 - 5.40 /CUMM) 4.51 Hgb (12.0 - 16.0 G/DL) 13.1 Hct (37 - 47 %) 39.1 MCV (81.0 - 99.0 FL) 86.8 MCH (27.0 - 31.0 PG) 29.1 MCHC (33.0 - 37.0 G/DL) 33.6 RDW (11.5 - 14.5 %) 13.0 Plt Count (130 - 400 /CUMM) 307 MPV (7.4 - 10.4 FL) 6.0 L Gran % (42.2 - 75.2 %) 53.6 Lymphocytes % (20.5 - 51.1 %) 37.0 Monocytes % (1.7 - 9.3 %) 6.7 Eosinophils % (0 - 5 %) 2.3 Basophils % (0.0 - 2.0 %) 0.4 Absolute Granulocytes (1.4 - 6.5 /CUMM) 3.0 Absolute Lymphocytes (1.2 - 3.4 /CUMM) 2.1 Absolute Monocytes (0.10 - 0.60 /CUMM) 0.4 Absolute Eosinophils (0.0 - 0.7 /CUMM) 0.1 Absolute Basophils (0.0 - 0.2 /CUMM) 0 ESR Westergren (0 - 20 MM) 5 Toxicology Serum Alcohol (<10 MG/DL) < 10.0 Imaging/Other Studies: MRI: IMPRESSION: No acute intracranial process. Minimal nonspecific white matter signal changes. Assessment/Plan Assessment: Periodic falls without warning or dizziness Mildly parkinsonian on exam Recommendations: Check for orthostasis Reduced outpatient use of zolpidem to no more than 5 mg a day per FDA advice in females Attempt to reduce Abilify dosage Should symptoms persist would discuss trial studies in [place] to search for neurodegenerative diseases such as progressive supranuclear palsy Consult Acknowledgment - Thank you for your consult request.
[2017-10-18 13:51] VITALS: BP 98/62
--- NOTE | 2017-10-18 17:15 | Cons- Endocrinology ---
General Information and HPI Consulting Request Date of Consult: 10/18/17 Requested By: medical team Reason for Consult: Possible adrenal insufficiency Source of Information: patient, family, old records Exam Limitations: no limitations History of Present Illness: This 62-year-old woman the past history of hypothyroidism not on medication now and depression and was brought to the emergency room by her family. This was because she was falling at home. Apparently she has been spending a lot of time in bed. She also has developed some confusion. She states that she has a very poor appetite and has lost about 35 pounds over the past few years. She was on Abilify and Wellbutrin at home. She stopped Klonopin according to the record about a few weeks ago. She also was taking zolpidem. She denies taking any narcotic pain medication. She is on Prilosec, eyedrops for dry eyes, Multivite, calcium with vitamin D and magnesium. The patient has been found to have postural hypotension. The possibility of adrenal insufficiency was raised. I spoke with the resident earlier and we decided to do a Cortrosyn stimulation test. Her cortisol poststimulation with Cortrosyn is 19.3. Technically that is a normal value. Allergies/Medications Allergies: Coded Allergies: Penicillins (UNKNOWN 11/16/15) Sulfa (Sulfonamide Antibiotics) (UNKNOWN 11/16/15) acetaminophen (From PERCOCET) (UNKNOWN 11/16/15) codeine (UNKNOWN 11/16/15) morphine (UNKNOWN 11/16/15) oxycodone (From PERCOCET) (UNKNOWN 11/16/15) penicillin V (UNKNOWN 11/16/15) Home Med List: Aripiprazole (Abilify) 2 MG TABLET 1 TAB PO DAILY MENTAL HEALTH (Reported) Zolpidem Tartrate 10 MG TABLET 1 TAB PO QPM SLEEP (Reported) Review of Systems Review of Systems Constitutional: Denies: chills, fever. Cardiovascular: Denies: chest pain. Respiratory: Denies: cough, short of breath. GI: Denies: abdominal pain, nausea, vomiting. Genitourinary: Denies: dysuria. Skin: Reports: no symptoms. Neurological/Psychological: Denies: depressed, tingling. Hematologic/Endocrine: Denies: polyuria, polydipsia. 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 Home Who Do You Live With? child Services at Home: None Smoking Status: Never Smoked ETOH Use: denies use Illicit Drug Use: denies illicit drug use Functional Ability ADLs Independent: dressing, eating, toileting, bathing. Ambulation: independent Exam & Diagnostic Data Last 24 Hrs of Vital Signs/I&O Vital Signs Date Time Temp Pulse Resp B/P B/P Pulse O2 O2 Flow FiO2 Mean Ox Delivery Rate 10/18 1351 98.0 63 20 98/62 97 Room Air 10/18 0634 97.5 62 18 100/60 97 10/17 2234 97.5 73 98/62 98 Room Air 10/17 2141 62 18 103/56 98 Room Air 10/18 2003 96 Room Air 10/17 2002 97.6 60 18 99/52 96 Room Air 10/17 1752 98.1 Intake & Output 10/18 1600 10/18 0800 05 0000 Intake Total 6722 341 3525 Output Total 400 300 Balance 1105 400 700 Intake, IV 095 755 9419 Intake, Oral 480 200 Output, Urine 400 300 Patient 114 lb 115 lb Weight Weight Bed scale Measurement Method Vital Signs Date Time Temp Pulse Resp B/P B/P Pulse O2 O2 Flow FiO2 Mean Ox Delivery Rate 10/18 1351 98.0 63 20 98/62 97 Room Air 10/18 0634 97.5 62 18 100/60 97 10/17 2234 97.5 73 98/62 98 Room Air 10/17 2141 62 18 103/56 98 Room Air 10/18 2003 96 Room Air 10/17 2002 97.6 60 18 99/52 96 Room Air 10/17 1752 98.1 Intake & Output 10/18 1600 10/18 0800 05/ 0000 Intake Total 2934 311 3797 Output Total 400 300 Balance 1105 400 700 Intake, IV 539 269 3597 Intake, Oral 480 200 Output, Urine 400 300 Patient 114 lb 115 lb Weight Weight Bed scale Measurement Method Physical Exam General Appearance: alert, awake, thin Head: normal appearance Eyes: Bilateral: normal appearance. Neck: normal inspection Respiratory: normal breath sounds Cardiovascular: regular rate/rhythm Gastrointestinal: normal bowel sounds, soft Extremities: normal inspection Labs/Jon Results: Laboratory Tests 10/18 10/18 1519 0665 Chemistry Sodium (137 - 145 mmol/L) 141 Potassium (3.5 - 5.1 mmol/L) 4.0 Chloride (98 - 107 mmol/L) 105 Carbon Dioxide (22 - 30 mmol/L) 26 Anion Gap (5 - 16) 10 BUN (7 - 17 mg/dL) 14 Creatinine (0.5 - 1.0 mg/dL) 0.9 Estimated GFR (>60 ml/min) > 60 BUN/Creatinine Ratio (7 - 25 %) 15.6 Hemoglobin A1c (4.2 - 5.8 %) Pending Troponin I (< 0.11 ng/ml) < 0.01 Cortisol AM Sample (4.46 - 22.7 ug/dL) 8.7 Cortisol PM Sample (1.7 - 14.1) 19.3 H Hematology CBC w Diff NO MAN DIFF REQ WBC (4.8 - 10.8 /CUMM) 4.4 L RBC (4.20 - 5.40 /CUMM) 4.05 L Hgb (12.0 - 16.0 G/DL) 11.8 L Hct (37 - 47 %) 35.2 L MCV (81.0 - 99.0 FL) 86.9 MCH (27.0 - 31.0 PG) 29.0 MCHC (33.0 - 37.0 G/DL) 33.4 RDW (11.5 - 14.5 %) 12.9 Plt Count (130 - 400 /CUMM) 255 MPV (7.4 - 10.4 FL) 6.0 L Gran % (42.2 - 75.2 %) 53.7 Lymphocytes % (20.5 - 51.1 %) 35.9 Monocytes % (1.7 - 9.3 %) 6.9 Eosinophils % (0 - 5 %) 2.8 Basophils % (0.0 - 2.0 %) 0.7 Absolute Granulocytes (1.4 - 6.5 /CUMM) 2.3 Absolute Lymphocytes (1.2 - 3.4 /CUMM) 1.6 Absolute Monocytes (0.10 - 0.60 /CUMM) 0.3 Absolute Eosinophils (0.0 - 0.7 /CUMM) 0.1 Absolute Basophils (0.0 - 0.2 /CUMM) 0 Serology HIV 1&2 Ab Western Blot (NONREACTIVE) NONREACTIVE 10/17 2220 Toxicology Urine Opiates Screen (>2000 NG/ML) < 100 Methadone Screen (>300 NG/ML) < 40 Barbiturate Screen (>200 NG/ML) < 60 Ur Phencyclidine Scrn (>25 NG/ML) < 6.00 Amphetamines Screen (>1000 NG/ML) 618 U Benzodiazepines Scrn (>200 NG/ML) 167 Urine Cocaine Screen (>300 NG/ML) < 50 Urine Cannabis Screen (>50 NG/ML) < 5.00 Urines Urine Color (YEL,AMB,STR) YEL Urine Clarity (CLEAR) HAZY H Urine pH (5.0 - 8.0) 6.0 Ur Specific [place] (1.001 - 1.035) 1.020 Urine Protein (NEG,<30 MG/DL) NEG Urine Ketones (NEG) NEG Urine Nitrite (NEG) NEG Urine Bilirubin (NEG) NEG Urine Urobilinogen (0.1 - 1.0 EU/dl) 0.2 Ur Leukocyte Esterase (NEG) LARGE H Ur Microscopic SEDIMENT EXAMINED Urine RBC (0 - 5 /HPF) 3-5 Urine WBC (0 - 2 /HPF) > 75 H Ur Epithelial Cells (NONE,FEW) FEW Urine Bacteria (NEG/NONE) FEW H Urine Hemoglobin (NEG) SMALL H Urine Glucose (N MG/DL) NEG 10/17 1800 Chemistry Sodium (137 - 145 mmol/L) 144 Potassium (3.5 - 5.1 mmol/L) 4.2 Chloride (98 - 107 mmol/L) 102 Carbon Dioxide (22 - 30 mmol/L) 29 Anion Gap (5 - 16) 14 BUN (7 - 17 mg/dL) 19 H Creatinine (0.5 - 1.0 mg/dL) 0.9 Estimated GFR (>60 ml/min) > 60 BUN/Creatinine Ratio (7 - 25 %) 21.1 Glucose (65 - 99 mg/dL) 89 Serum Osmolality (285 - 295 MOSM/KG) 306 H Calcium (8.4 - 10.2 mg/dL) 9.3 Magnesium (1.6 - 2.3 mg/dL) 2.0 Total Bilirubin (0.2 - 1.3 mg/dL) 0.4 Direct Bilirubin (< 0.4 mg/dL) 0.1 AST (14 - 36 U/L) 13 L ALT (9 - 52 U/L) 22 Alkaline Phosphatase (<127 U/L) 58 Ammonia (9 - 30 umol/L) < 9 L Total Protein (6.3 - 8.2 g/dL) 6.5 Albumin (3.5 - 5.0 g/dL) 4.1 Globulin (1.9 - 4.2 gm/dL) 2.4 Albumin/Globulin Ratio (1.1 - 2.2 %) 1.7 Vitamin B12 (239 - 931 pg/mL) 431 Folate (2.76 - 20.0 ng/mL) 7.1 TSH &T3 &Free T4 Intrp (0.270 - 4.20 uIU/mL) 3.500 Cortisol PM Sample (1.7 - 14.1) 3.8 Hematology CBC w Diff NO MAN DIFF REQ WBC (4.8 - 10.8 /CUMM) 5.6 RBC (4.20 - 5.40 /CUMM) 4.51 Hgb (12.0 - 16.0 G/DL) 13.1 Hct (37 - 47 %) 39.1 MCV (81.0 - 99.0 FL) 86.8 MCH (27.0 - 31.0 PG) 29.1 MCHC (33.0 - 37.0 G/DL) 33.6 RDW (11.5 - 14.5 %) 13.0 Plt Count (130 - 400 /CUMM) 307 MPV (7.4 - 10.4 FL) 6.0 L Gran % (42.2 - 75.2 %) 53.6 Lymphocytes % (20.5 - 51.1 %) 37.0 Monocytes % (1.7 - 9.3 %) 6.7 Eosinophils % (0 - 5 %) 2.3 Basophils % (0.0 - 2.0 %) 0.4 Absolute Granulocytes (1.4 - 6.5 /CUMM) 3.0 Absolute Lymphocytes (1.2 - 3.4 /CUMM) 2.1 Absolute Monocytes (0.10 - 0.60 /CUMM) 0.4 Absolute Eosinophils (0.0 - 0.7 /CUMM) 0.1 Absolute Basophils (0.0 - 0.2 /CUMM) 0 ESR Westergren (0 - 20 MM) 5 Toxicology Serum Alcohol (<10 MG/DL) < 10.0 Assessment/Plan Assessment/Plan The patient's main problem is postural hypotension. At the bedside her blood pressure is 90/60 lying down 80/60 sitting up and 60/40 standing. The patient has not complained of dizziness when she is standing. The exact cause of the postural hypotension is not clear. She has been spending a lot of time in bed and this could lead to deconditioning and postural hypotension related to that. With regard to her adrenal function all her tests are borderline. Her electrolytes are normal which would suggest possible secondary adrenal insufficiency rather than primary adrenal insufficiency. Her a.m. cortisol was 8.7 with a p.m. cortisol 3.8. Her Cortrosyn stimulation test was 19.3. A value above 18 is technically normal but there is remains some suspicion of adrenal insufficiency. We need to measure her aldosterone level. The patient's TSH is normal but we need to add a free T4 to her lab work. I would do a pituitary workup on this patient. We should measure LH, FSH, estradiol, and prolactin. We should also measure a 21-hydroxylase antibody to look for autoimmune adrenal insufficiency along with antithyroid peroxidase and antithyroglobulin levels. The patient's Abilify has been stopped as well as her bupropion. This needs to be reevaluated as the patient states she was taking this prior to admission. While we are evaluating her adrenal function further I will place her on Solu- Cortef 50 mg IV every 8 hours and continue to check postural blood pressure. I would also continue to hydrate her with normal saline. If her blood pressure does not normalize with steroids we may need to add midodrine. Consult Acknowledgment - Thank you for your consult request.
[2017-10-18 21:18] VITALS: BP 98/60
[2017-10-19 05:41] VITALS: BP 108/62
--- NOTE | 2017-10-19 09:23 | PN- Housestaff ---
[facility]: Subjective Follow-up For: Fall with out dizziness or warning symptoms Adrenal insufficiency Subjective: No overnight events. Patient remained afebrile overnight. Seen and examined this morning. Patient denied any chest pain, short of breath, nausea, vomiting, chills, fever, abdominal pain dysuria. This morning patient is alert oriented X3 and cooperative. Patient reported that sometimes she feels dizzy while getting out of the bed. She reported that she is having orthostatic hypotension in the past. Patient is feeling much improved this morning. Review of Systems Constitutional: Denies: chills, fever. EENTM: Reports: no symptoms. Cardiovascular: Denies: chest pain, orthopena, palpitations. Respiratory: Denies: cough, short of breath, sputum production. Gastrointestinal: Denies: abdominal pain, diarrhea, melena, nausea, vomiting. Genitourinary: Reports: no symptoms. Musculoskeletal: Reports: no symptoms. Neurological/Psychological: Reports: no symptoms. Objective Last 24 Hrs of Vital Signs/I&O Vital Signs Date Time Temp Pulse Resp B/P B/P Pulse O2 O2 Flow FiO2 Mean Ox Delivery Rate 10/19 0541 98.1 57 18 108/62 95 Room Air 10/18 2118 98.2 64 18 98/60 96 Room Air 10/18 1351 98.0 63 20 98/62 97 Room Air Intake & Output 10/19 1600 10/19 0800 10/19 0000 Intake Total 1120 1397 Output Total 900 Balance 1120 497 Intake, IV 1000 897 Intake, Oral 120 500 Number 0 Bowel Movements Output, Urine 900 Physical Exam General Appearance: Alert, Oriented X3, Cooperative Skin Temp/Moisture Exam: Warm/Dry Sepsis Skin Exam (color): Normal for Ethnicity HEENT: Atraumatic, PERRLA, EOMI Neck: Supple Cardiovascular: Normal S1, Normal S2 Lungs: Clear to Auscultation Abdomen: Soft, No Tenderness Neurological: Normal Speech, Strength at 5/5 X4 Ext, Normal Tone Extremities: No Edema Assessment/Plan Assessment: 62-year-old female with past medical history significant for panic disorder, hypothyroidism, interstitial cystitis, suicidal ideation, multiple falls, who comes in for chief complaint of altered mental status. Head CT shows no acute intracranial pathology. Orthostats + when standing up. In ED we performed a Montral cognitive assessment which gave her a score of 15 out of 30 (nml greater or at 26). We are following the patient following problems: Fall without warning signs or dizziness: -Probably due to supranuclear palsy started drop in blood pressure due to adrenal insufficiency. -Her zolpidem and Klonopin has been discontinued. -Continue gentle IV hydration -Follow-up orthostatic vitals -We will check her aldosterone level -Continue hydrocortisone 50 mg IV 8 hourly -We'll start fludrocortisone 0.1 mg daily after aldosterone level has been drawn DVT prophylaxis: Mechanical and subtenons Lovenox CODE STATUS: DNR/intubation Problem List: 1. Falls frequently Pain Ratin Pain Location: none Pain Goal: Remain pain free Pain Plan: pain pathway Tomorrow's Labs & Rationales: Betzaida Hudson MD 10/19/17 1159: Attending MD Review Statement Attending Statement Attending MD Statement: examined this patient, discuss w/resident/PA/C D AREA SUPERVISOR, agreed w/resident/PA/C D AREA SUPERVISOR, discussed with family, reviewed EMR data (avail), discussed with nursing, amended to note Attending Assessment/Plan: Patient seen and examined. Family present at the bedside. Denies any malaise this morning. Denies any dizziness or lightheadedness. Evaluation by the endocrinology service yesterday and this morning appreciated. She was started on Solu-Cortef yesterday in addition to IV hydration. Her orthostatic blood pressure changes have resolved this morning. It appears that patient has some degree of renal insufficiency. We will follow-up aldosterone levels as recommended by the endocrinology service and begin patient on fludrocortisone. Discontinue IV fluids.
--- NOTE | 2017-10-19 09:32 | PN- Endocrinology ---
Assessment/Plan Endoscopy Assessment: This patient has postural hypotension. She feels about the same. She is now on Solu-Cortef 50 mg IV every 8 hours. Lab tests from yesterday with regard to her pituitary show that her estradiol is appropriately low at 19.4 for a postmenopausal woman. Prolactin is normal at 10.7 with FSH and LH elevated as they should be in menopause. Aldosterone level was not ordered unfortunately When checking at the bedside her blood pressure sitting is now 100/60. When she stands up it goes to 85/60 which is better than yesterday. Plan: This patient may have possible relative adrenal insufficiency. Her blood pressure is somewhat improved on steroids and IV fluids. For now I would continue Solu-Cortef 50 mg IV every 8 hours. We need to measure aldosterone today. Once the aldosterone level is drawn we can consider placing the patient on Florinef to support her blood pressure. We can begin fludrocortisone 0.1 mg daily; Subjective Subjective: Feels a little better Review of Systems Constitutional: Denies: chills, fever. Cardiovascular: Denies: chest pain. Respiratory: Denies: cough, short of breath. Gastrointestinal: Denies: abdominal pain, nausea, vomiting. Skin: Reports: no symptoms. Objective Last 24 Hrs of Vital Signs/I&O Vital Signs Date Time Temp Pulse Resp B/P B/P Pulse O2 O2 Flow FiO2 Mean Ox Delivery Rate 10/19 0441 98.1 57 18 108/ 95 Room Air 10/18 2117 98.2 64 18 98/60 96 Room Air 10/18 1351 98.0 63 20 98/62 97 Room Air Intake & Output 10/19 1600 10/19 0810/19 0000 Intake Total 1120 1397 Output Total 900 Balance 1120 497 Intake, IV 1000 897 Intake, Oral 120 500 Number 0 Bowel Movements Output, Urine 900 Vital Signs Date Time Temp Pulse Resp B/P B/P Pulse O2 O2 Flow FiO2 Mean Ox Delivery Rate 10/19 0441 98.1 57 18 108/62 95 Room Air 10/18 2117 98.2 64 18 98/60 96 Room Air 10/18 1351 98.0 63 20 98/62 97 Room Air Intake & Output 10/19 1600 10/19 0810/19 0000 Intake Total 1120 1397 Output Total 900 Balance 1120 497 Intake, IV 1000 897 Intake, Oral 120 500 Number 0 Bowel Movements Output, Urine 900 Physical Exam General Appearance: alert, awake, comfortable Head: normal appearance Respiratory: normal breath sounds Cardiovascular: regular rate/rhythm Abdomen: normal bowel sounds Skin: intact Current Medications: Current Medications Sig/Danielle Start time Last Medication Dose Route Stop Time Status Admin Acetaminophen 650 MG Q6P PRN 10/17 2029 AC PO Cosyntropin 0.25 MG ONE ONE 10/18 1345 DC 10/18 IV 10/18 1346 1411 Enoxaparin Sodium 40 MG DAILY 10/18 0900 AC 10/18 SC 0844 Hydrocortisone 50 MG Q8 10/18 2200 AC 10/19 Sodium Succinate IV 0524 Ibuprofen 600 MG Q6P PRN 10/17 2030 AC PO Sodium Chloride 1,000 ML Q8H 10/18 1145 AC 10/19 IV 0654 Sodium Chloride 1,000 ML Q13H 10/17 2315 DC 10/17 IV 10/18 1214 2335 Results Pertinent Lab/Jon Results: Laboratory Tests 10/18 10/18 10/18 1519 1519 0633 Chemistry Sodium (137 - 145 mmol/L) 141 Potassium (3.5 - 5.1 mmol/L) 4.0 Chloride (98 - 107 mmol/L) 105 Carbon Dioxide (22 - 30 mmol/L) 26 Anion Gap (5 - 16) 10 BUN (7 - 17 mg/dL) 14 Creatinine (0.5 - 1.0 mg/dL) 0.9 Estimated GFR (>60 ml/min) > 60 BUN/Creatinine Ratio (7 - 25 %) 15.6 Hemoglobin A1c (4.2 - 5.8 %) Pending Troponin I (< 0.11 ng/ml) < 0.01 Free T4 (0.78 - 2.44 ng/dL) 1.08 Thyroglobulin Pending Estradiol (E2) Level (pg/mL) 19.4 Prolactin (3.0 - 18.6 ng/mL) 10.7 Cortisol AM Sample (4.46 - 22.7 ug/dL) 8.7 Cortisol PM Sample (1.7 - 14.1) 19.3 H Hematology CBC w Diff NO MAN DIFF REQ WBC (4.8 - 10.8 /CUMM) 4.4 L RBC (4.20 - 5.40 /CUMM) 4.05 L Hgb (12.0 - 16.0 G/DL) 11.8 L Hct (37 - 47 %) 35.2 L MCV (81.0 - 99.0 FL) 86.9 MCH (27.0 - 31.0 PG) 29.0 MCHC (33.0 - 37.0 G/DL) 33.4 RDW (11.5 - 14.5 %) 12.9 Plt Count (130 - 400 /CUMM) 255 MPV (7.4 - 10.4 FL) 6.0 L Gran % (42.2 - 75.2 %) 53.7 Lymphocytes % (20.5 - 51.1 %) 35.9 Monocytes % (1.7 - 9.3 %) 6.9 Eosinophils % (0 - 5 %) 2.8 Basophils % (0.0 - 2.0 %) 0.7 Absolute Granulocytes (1.4 - 6.5 /CUMM) 2.3 Absolute Lymphocytes (1.2 - 3.4 /CUMM) 1.6 Absolute Monocytes (0.10 - 0.60 /CUMM) 0.3 Absolute Eosinophils (0.0 - 0.7 /CUMM) 0.1 Absolute Basophils (0.0 - 0.2 /CUMM) 0 Immunology Thyroglobulin Antibody Pending Thyroid Peroxidase Ab (< 61 U/mL) < 28 21-Hydroxylase Antibody Pending Serology HIV 1&2 Ab Western Blot (NONREACTIVE) NONREACTIVE 10/17 2220 Toxicology Urine Opiates Screen (>2000 NG/ML) < 100 Methadone Screen (>300 NG/ML) < 40 Barbiturate Screen (>200 NG/ML) < 60 Ur Phencyclidine Scrn (>25 NG/ML) < 6.00 Amphetamines Screen (>1000 NG/ML) 618 U Benzodiazepines Scrn (>200 NG/ML) 167 Urine Cocaine Screen (>300 NG/ML) < 50 Urine Cannabis Screen (>50 NG/ML) < 5.00 Urines Urine Color (YEL,AMB,STR) YEL Urine Clarity (CLEAR) HAZY H Urine pH (5.0 - 8.0) 6.0 Ur Specific [place] (1.001 - 1.035) 1.020 Urine Protein (NEG,<30 MG/DL) NEG Urine Ketones (NEG) NEG Urine Nitrite (NEG) NEG Urine Bilirubin (NEG) NEG Urine Urobilinogen (0.1 - 1.0 EU/dl) 0.2 Ur Leukocyte Esterase (NEG) LARGE H Ur Microscopic SEDIMENT EXAMINED Urine RBC (0 - 5 /HPF) 3-5 Urine WBC (0 - 2 /HPF) > 75 H Ur Epithelial Cells (NONE,FEW) FEW Urine Bacteria (NEG/NONE) FEW H Urine Hemoglobin (NEG) SMALL H Urine Glucose (N MG/DL) NEG 10/17 1800 Chemistry Sodium (137 - 145 mmol/L) 144 Potassium (3.5 - 5.1 mmol/L) 4.2 Chloride (98 - 107 mmol/L) 102 Carbon Dioxide (22 - 30 mmol/L) 29 Anion Gap (5 - 16) 14 BUN (7 - 17 mg/dL) 19 H Creatinine (0.5 - 1.0 mg/dL) 0.9 Estimated GFR (>60 ml/min) > 60 BUN/Creatinine Ratio (7 - 25 %) 21.1 Glucose (65 - 99 mg/dL) 89 Serum Osmolality (285 - 295 MOSM/KG) 306 H Calcium (8.4 - 10.2 mg/dL) 9.3 Magnesium (1.6 - 2.3 mg/dL) 2.0 Total Bilirubin (0.2 - 1.3 mg/dL) 0.4 Direct Bilirubin (< 0.4 mg/dL) 0.1 AST (14 - 36 U/L) 13 L ALT (9 - 52 U/L) 22 Alkaline Phosphatase (<127 U/L) 58 Ammonia (9 - 30 umol/L) < 9 L Total Protein (6.3 - 8.2 g/dL) 6.5 Albumin (3.5 - 5.0 g/dL) 4.1 Globulin (1.9 - 4.2 gm/dL) 2.4 Albumin/Globulin Ratio (1.1 - 2.2 %) 1.7 Vitamin B12 (239 - 931 pg/mL) 431 Folate (2.76 - 20.0 ng/mL) 7.1 TSH &T3 &Free T4 Intrp (0.270 - 4.20 uIU/mL) 3.500 Cortisol PM Sample (1.7 - 14.1) 3.8 Hematology CBC w Diff NO MAN DIFF REQ WBC (4.8 - 10.8 /CUMM) 5.6 RBC (4.20 - 5.40 /CUMM) 4.51 Hgb (12.0 - 16.0 G/DL) 13.1 Hct (37 - 47 %) 39.1 MCV (81.0 - 99.0 FL) 86.8 MCH (27.0 - 31.0 PG) 29.1 MCHC (33.0 - 37.0 G/DL) 33.6 RDW (11.5 - 14.5 %) 13.0 Plt Count (130 - 400 /CUMM) 307 MPV (7.4 - 10.4 FL) 6.0 L Gran % (42.2 - 75.2 %) 53.6 Lymphocytes % (20.5 - 51.1 %) 37.0 Monocytes % (1.7 - 9.3 %) 6.7 Eosinophils % (0 - 5 %) 2.3 Basophils % (0.0 - 2.0 %) 0.4 Absolute Granulocytes (1.4 - 6.5 /CUMM) 3.0 Absolute Lymphocytes (1.2 - 3.4 /CUMM) 2.1 Absolute Monocytes (0.10 - 0.60 /CUMM) 0.4 Absolute Eosinophils (0.0 - 0.7 /CUMM) 0.1 Absolute Basophils (0.0 - 0.2 /CUMM) 0 ESR Westergren (0 - 20 MM) 5 Toxicology Serum Alcohol (<10 MG/DL) < 10.0
[2017-10-19 14:27] VITALS: BP 104/68
[2017-10-19 22:42] VITALS: BP 150/64
[2017-10-20 06:00] VITALS: BP 130/66
--- NOTE | 2017-10-20 08:06 | PN- Endocrinology ---
Assessment/Plan Endoscopy Assessment: The patient feels somnewhat better. She is being treated for relative adrenal insufficiency. She is on hydrocortisone in the form of Solu-Cortef 50 mg IV every 8 hours as well as Florinef 0.1 mg daily. Her blood pressure is much improved. It is 130/80 lying down. When checked at the bedside sitting up the patient's blood pressure is 110/60 and standing it remains 110/60. This is much better than yesterday. Plan: Suggest reduce hydrocortisone to 25 mg twice a day by mouth today. Tomorrow change hydrocortisone to 15 mg in the a.m. before breakfast and 5 mg in the p.m. at suppertime. Continue fludrocortisone 0.1 mg daily. Continue to monitor postural blood pressures. The patient has been off Abilify and bupropion since coming to the hospital. Consider psychiatry consult to see if the patient still needs these medications. They were initially given by Dr. Reeves her previous primary care doctor. Subjective Subjective: There was improved Review of Systems Constitutional: Denies: chills, fever. EENTM: Reports: visual changes. Cardiovascular: Denies: chest pain. Respiratory: Denies: cough, short of breath. Gastrointestinal: Denies: abdominal pain, nausea, vomiting. Skin: Reports: no symptoms. Objective Last 24 Hrs of Vital Signs/I&O Vital Signs Date Time Temp Pulse Resp B/P B/P Pulse O2 O2 Flow FiO2 Mean Ox Delivery Rate 10/20 06 97.9 53 20 130/66 97 10/19 2242 98.9 62 20 150/64 93 Room Air 10/19 1427 98.2 62 20 104/68 96 Room Air Intake & Output 10/20 1600 10/20 0800 10/20 0000 Intake Total 120 130 Output Total Balance 120 130 Intake, IV 20 30 Intake, Oral 100 100 Physical Exam General Appearance: alert, awake, comfortable Head: normal appearance Neck: normal inspection Respiratory: normal breath sounds Cardiovascular: regular rate/rhythm Abdomen: normal bowel sounds, soft Extremities: normal inspection Current Medications: Current Medications Sig/Danielle Start time Last Medication Dose Route Stop Time Status Admin Acetaminophen 650 MG Q6P PRN 10/17 2030 AC PO Enoxaparin Sodium 40 MG DAILY 10/18 09 AC 10/19 SC 0933 Fludrocortisone 100 MCG DAILY 10/20 0900 AC Acetate PO Hydrocortisone 50 MG Q8 10/18 2200 AC 10/20 Sodium Succinate IV 0530 Ibuprofen 600 MG Q6P PRN 10/17 2030 AC PO Sodium Chloride 1,000 ML Q8H 10/18 1145 DC 10/19 IV 0654 Results Pertinent Lab/Jon Results: Laboratory Tests 10/20 0650 Chemistry Aldosterone Pending
--- NOTE | 2017-10-20 08:10 | PN- Housestaff ---
Subjective Follow-up For: falls relative adrenal insufficiency Subjective: Patient states that she has no complaints today. she is not dizzy or lightheaded. She is eating and has been walking but we would like to get her walking more today. She states that she is feeling more steady. She states that she feels her baseline. Review of Systems Constitutional: Reports: no symptoms. EENTM: Reports: no symptoms. Cardiovascular: Reports: no symptoms. Respiratory: Reports: no symptoms. Gastrointestinal: Reports: no symptoms. Genitourinary: Reports: no symptoms. Musculoskeletal: Reports: no symptoms. Skin: Reports: no symptoms. Neurological/Psychological: Reports: no symptoms. Objective Last 24 Hrs of Vital Signs/I&O Vital Signs Date Time Temp Pulse Resp B/P B/P Pulse O2 O2 Flow FiO2 Mean Ox Delivery Rate 10/20 2206 98.7 57 20 112/68 97 Room Air 10/20 1419 98.4 68 18 108/60 97 Room Air 10/20 0600 97.9 53 20 130/66 97 10/19 2242 98.9 62 20 150/64 93 Room Air Intake & Output 10/20 1600 10/20 0800 10/20 0000 Intake Total 500 120 130 Output Total Balance 500 120 130 Intake, IV 20 30 Intake, Oral 500 100 100 Number 1 Bowel Movements Physical Exam General Appearance: Alert, Oriented X3, Cooperative, No Acute Distress Skin Temp/Moisture Exam: Warm/Dry Sepsis Skin Exam (color): Normal for Ethnicity HEENT: Atraumatic, PERRLA, EOMI Neck: Supple Cardiovascular: Regular Rate, Normal S1, Normal S2, No Murmurs Lungs: Clear to Auscultation, Normal Air Movement Abdomen: Normal Bowel Sounds, Soft, No Tenderness Neurological: Normal Speech, neuro same pas prior Extremities: No Clubbing, No Cyanosis, No Edema Vascular: Normal Pulses Current Medications: Current Medications Sig/Dainelle Start time Last Medication Dose Route Stop Time Status Admin Acetaminophen 650 MG Q6P PRN 10/17 2030 AC PO Enoxaparin Sodium 40 MG DAILY 10/18 899 AC 10/20 SC 09 Fludrocortisone 100 MCG DAILY 10/20 899 AC 10/20 Acetate PO 0903 Hydrocortisone 25 MG Q12 10/20 2100 AC 10/20 PO 2001 Hydrocortisone 50 MG Q8 10/180 DC 10/20 Sodium Succinate IV 05 Ibuprofen 600 MG Q6P PRN 10/17 2030 AC PO Last 24 Hrs of Lab/Jon Results Last 24 Hrs of Labs/Mics: Laboratory Tests 10/20/17 0650: Aldosterone Pending Assessment/Plan Assessment: 62-year-old female with past medical history significant for panic disorder, hypothyroidism, interstitial cystitis, suicidal ideation, multiple falls, who comes in for chief complaint of altered mental status. Head CT shows no acute intracranial pathology. Orthostats +. In ED we performed a Montral cognitive assessment which gave her a score of 15 out of 30 (nml greater or at 26). MMSE similarly decreased. Patient normally on zolpidem, klonipin which she has since stopped 2 weeks ago, abilify, wellbutrin, unsure of dosing. We are following the patient following problems: Fall without warning signs or dizziness: blood pressure this am 110/60. Orthostats negative this am. UA, utox, B12, ESR negative. MRI non contrast no pathology. Of note patient should have had contrast, no issues with kidney that would preclude contrast. -Follow up neuro: they have suggested to decrease zolpidem to 5 which is the suggested dose for women. -Patient had low pm cortisol level in the setting of positive orthostats. Cosyntropin test was done and was negative but not "robust" as per endocrine. Therefore, hydrocortisone IV 50mg q8 was started. Afterwards, fludrocortisone was started and we have begun to taper hydrocortisone today starting PO 25mg. -Continue fludrocortisone .1mg. Change hydrocortisone to 15mg in the am tomorrow before breakfast and 5mg in the pm at suppertime. -Follow up aldosterone level -Follow other endocrine recs. Of note patient has followed Dr. Stewart for quite some time. She used to have a positive thyroid Ab in the past which has since resolved. Her prolactin, FSH, LH, estradiol are normal. -Her zolpidem and Klonopin has been discontinued. Follow up with psych consult for med management. -Continue gentle IV hydration -Follow-up orthostatic vitals DVT prophylaxis: Mechanical and Lovenox CODE STATUS: DNR/DNI Problem List: 1. Falls frequently 2. Altered mental status Pain Ratin Pain Location: na Pain Goal: Remain pain free Pain Plan: na Tomorrow's Labs & Rationales: na
--- NOTE | 2017-10-20 13:30 | PN- Att Addend ---
Attending Addendum Attending Brief Note Patient seen and examined. Plan of care discussed with the medical team and the patient. Available lab work and radiology test reports were reviewed. Patient feeling much better and denies any new complaints. She wants to go home today. Her blood pressure increased to 150/64. Patient stated that her normal blood pressure is usually low 90s. Exam: General: Patient awake alert oriented without any distress CVS: S1 plus S2 without any murmur or gallops Chest: Few scattered crepitation without any wheeze. There is no respiratory distress. Abdomen: Soft non-tender, bowel sound present, no guarding or rebound RAILROADER: Awake alert oriented without any focal neuro deficit and follows commands appropriately Extremities: No edema; no clubbing or cyanosis noted Assessment * Hypotension and postural dizziness- transient and improved * Suspected adrenal insufficiency- fortunately cosyntropin stim attrition test came back normal with appropriate rise in Carticel level * Early Parkinson's disease? Patient will need follow-up with neurology Plan * Recheck orthostatics * I will stop fludrocortisone and hydrocortisone if agreed by endocrinology * Ambulate patient * If orthostatics are within normal limits she can be discharged home today * She should follow with neurology as outpatient to workup early Parkinson's disease * Suggest discontinuing zolpidem and instead trying melatonin for sleep at night Current Medications Sig/Danielle Start time Last Medication Dose Route Stop Time Status Admin Acetaminophen 650 MG Q6P PRN 10/17 2030 AC PO Enoxaparin Sodium 40 MG DAILY 10/18 0900 AC 10/20 SC 0901 Fludrocortisone 100 MCG DAILY 10/20 0900 AC 10/20 Acetate PO 0903 Hydrocortisone 25 MG Q12 10/20 2100 AC PO Hydrocortisone 50 MG Q8 10/18 2200 DC 10/20 Sodium Succinate IV 0530 Ibuprofen 600 MG Q6P PRN 10/17 2030 AC PO Sodium Chloride 1,000 ML Q8H 10/18 1145 DC 10/19 IV 0654 Laboratory Tests 10/20/17 0650: Aldosterone Pending 10/18/17 1519: Thyroglobulin Pending, Thyroid Peroxidase Ab < 28 10/18/17 1519: Free T4 1.08, Estradiol (E2) Level 19.4, Prolactin 10.7, Cortisol PM Sample 19.3 H, Thyroglobulin Antibody Pending, 21-Hydroxylase Antibody Pending 10/18/17 0633: Anion Gap 10, Estimated GFR > 60, BUN/Creatinine Ratio 15.6, Hemoglobin A1c 5.4, Troponin I < 0.01, Cortisol AM Sample 8.7, CBC w Diff NO MAN DIFF REQ, RBC 4.05 L, MCV 86.9, MCH 29.0, MCHC 33.4, RDW 12.9, MPV 6.0 L, Gran % 53.7, Lymphocytes % 35.9, Monocytes % 6.9, Eosinophils % 2.8, Basophils % 0.7, Absolute Granulocytes 2.3, Absolute Lymphocytes 1.6, Absolute Monocytes 0.3, Absolute Eosinophils 0.1, Absolute Basophils 0, HIV 1&2 Ab Western Blot NONREACTIVE 10/17/17 2220: Urine Opiates Screen < 100, Methadone Screen < 40, Barbiturate Screen < 60, Ur Phencyclidine Scrn < 6.00, Amphetamines Screen 618, U Benzodiazepines Scrn 167, Urine Cocaine Screen < 50, Urine Cannabis Screen < 5.00, Urine Color YEL, Urine Clarity HAZY H, Urine pH 6.0, Ur Specific [place] 1.020, Urine Protein NEG, Urine Ketones NEG, Urine Nitrite NEG, Urine Bilirubin NEG, Urine Urobilinogen 0.2, Ur Leukocyte Esterase LARGE H, Ur Microscopic SEDIMENT EXAMINED, Urine RBC 3-5, Urine WBC > 75 H, Ur Epithelial Cells FEW, Urine Bacteria FEW H, Urine Hemoglobin SMALL H, Urine Glucose NEG 10/17/17 1800: Anion Gap 14, Estimated GFR > 60, BUN/Creatinine Ratio 21.1, Glucose 89, Serum Osmolality 306 H, Calcium 9.3, Magnesium 2.0, Total Bilirubin 0.4, Direct Bilirubin 0.1, AST 13 L, ALT 22, Alkaline Phosphatase 58, Ammonia < 9 L, Total Protein 6.5, Albumin 4.1, Globulin 2.4, Albumin/Globulin Ratio 1.7, Vitamin B12 431, Folate 7.1, TSH &T3 &Free T4 Intrp 3.500, Cortisol PM Sample 3.8, CBC w Diff NO MAN DIFF REQ, RBC 4.51, MCV 86.8, MCH 29.1, MCHC 33.6, RDW 13.0, MPV 6.0 L, Gran % 53.6, Lymphocytes % 37.0, Monocytes % 6.7, Eosinophils % 2.3, Basophils % 0.4, Absolute Granulocytes 3.0, Absolute Lymphocytes 2.1, Absolute Monocytes 0.4, Absolute Eosinophils 0.1, Absolute Basophils 0, ESR Westergren 5, Serum Alcohol < 10.0 Vital Signs Date Time Temp Pulse Resp B/P B/P Pulse O2 O2 Flow FiO2 Mean Ox Delivery Rate 10/20 0600 97.9 53 20 130/66 97 10/19 2242 98.9 62 20 150/64 93 Room Air 10/19 1427 98.2 62 20 104/68 96 Room Air Intake & Output 10/20 1600 10/20 0800 10/20 0000 Intake Total 120 130 Output Total Balance 120 130 Intake, IV 20 30 Intake, Oral 100 100
[2017-10-20 14:19] VITALS: BP 108/60
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
[2017-10-20 22:07] VITALS: BP 112/68
[2017-10-21 06:26] VITALS: BP 116/60
--- NOTE | 2017-10-21 07:38 | PN- Housestaff ---
Subjective Follow-up For: falls relative adrenal insufficiency altered mentation Subjective: Patient has no complaints this morning. She denies any dizziness, confusion, falls, has been ambulating well. Vitals stable. Review of Systems Constitutional: Reports: no symptoms. Cardiovascular: Reports: no symptoms. Respiratory: Reports: no symptoms. Gastrointestinal: Reports: no symptoms. Musculoskeletal: Reports: no symptoms. Neurological/Psychological: Reports: no symptoms. Objective Last 24 Hrs of Vital Signs/I&O Vital Signs Date Time Temp Pulse Resp B/P B/P Pulse O2 O2 Flow FiO2 Mean Ox Delivery Rate 10/21 0626 98.1 53 20 116/60 96 Room Air 10/20 2207 98.7 57 20 112/68 97 Room Air Physical Exam General Appearance: Alert, Oriented X3, Cooperative, No Acute Distress Skin: No Rashes, No Breakdown, No Significant Lesion Sepsis Skin Exam (color): Normal for Ethnicity HEENT: Atraumatic, EOMI Neck: Supple Cardiovascular: Regular Rate, Normal S1, Normal S2, No Murmurs Lungs: Clear to Auscultation, Normal Air Movement Abdomen: Normal Bowel Sounds, Soft, No Tenderness Neurological: Normal Speech Extremities: No Clubbing, No Cyanosis, No Edema Current Medications: Current Medications Sig/Danielle Start time Last Medication Dose Route Stop Time Status Admin Acetaminophen 650 MG Q6P PRN 10/17 2030 DCD PO Enoxaparin Sodium 40 MG DAILY 10/18 0900 DCD 10/21 SC 0802 Fludrocortisone 100 MCG DAILY 10/20 0900 DCD 10/21 Acetate PO 0802 Hydrocortisone 5 MG ONCE ONE 10/21 1800 DCD PO 10/21 1801 Hydrocortisone 15 MG ONCE ONE 10/21 0700 DC 10/21 PO 10/21 0701 0546 Hydrocortisone 25 MG Q12 10/20 2100 DC 10/20 PO 2002 Ibuprofen 600 MG Q6P PRN 10/17 2030 DCD PO Patient Medication 1 ED ONE ONE 10/21 1000 DC Teaching ED 10/21 1001 Assessment/Plan Assessment: 62-year-old female with past medical history significant for panic disorder, hypothyroidism, interstitial cystitis, suicidal ideation, multiple falls, who comes in for chief complaint of altered mental status. Head CT shows no acute intracranial pathology. Orthostats +. In ED we performed a [place] cognitive assessment which gave her a score of 15 out of 30 (nml greater or at 26). MMSE similarly decreased. Patient normally on zolpidem, klonipin which she has since stopped 2 weeks ago, abilify, wellbutrin, unsure of dosing. We are following the patient following problems: Fall without warning signs or dizziness: blood pressure this am 110/60. Orthostats negative this am. UA, utox, B12, ESR negative. MRI non contrast no pathology. Of note patient should have had contrast, no issues with kidney that would preclude contrast. -Follow up neuro: they have suggested to decrease zolpidem to 5 which is the suggested dose for women. -Patient had low pm cortisol level in the setting of positive orthostats. Cosyntropin test was done and was negative but not "robust" as per endocrine. Therefore, hydrocortisone IV 50mg q8 was started. Afterwards, fludrocortisone was started and we have begun to taper hydrocortisone today starting PO 25mg. -Continue fludrocortisone .1mg. Change hydrocortisone to 15mg in the am tomorrow before breakfast and 5mg in the pm at suppertime. -Follow up aldosterone level -Follow other endocrine recs. Of note patient has followed Dr. Stewart for quite some time. She used to have a positive thyroid Ab in the past which has since resolved. Her prolactin, FSH, LH, estradiol are normal. -Her zolpidem and Klonopin has been discontinued. Follow up with psych consult for med management. -Continue gentle IV hydration -Follow-up orthostatic vitals DVT prophylaxis: Mechanical and Lovenox CODE STATUS: DNR/DNI Problem List: 1. Falls frequently 2. Altered mental status Pain Ratin Pain Location: na Pain Goal: Remain pain free Pain Plan: na Tomorrow's Labs & Rationales: na
[2017-10-21] MEDS ORDERED: FLUDROCORTISON0.1 M1 PO ×2 (08:20→10:27)
[2017-10-21] MEDS ORDERED: HYDROCORTISONE10 M2 PO ×2 (08:20→10:27)
[2017-10-21] MEDS ORDERED: BUPROPION HCL75 M1 PO ×2 (08:24→10:11)
--- NOTE | 2017-10-21 08:24 | Patient Discharge Instructions ---
Discharge Instructions General Discharge Information You were seen/treated for: 1. falls 2. altered mentation Special Instructions: 1. please follow up with your pcp in one week 2. please follow up with Dr. Stewart in one week 3. please follow up with psychiatry in one week 4. please follow up with neurology in 1-2 weeks Diet Continue normal diet: Yes Activity Full Activity/No Limits: Yes (only as tolerated) Acute Coronary Syndrome Inclusion Criteria At DC or during hospital stay patient has or had the following: ACS DIAGNOSIS No Discharge Core Measures Meds if any: Prescribed or Continued at Discharge Meds if any: NOT Prescribed or Continued at Discharge Congestive Heart Failure Inclusion Criteria At DC or during hospital stay patient has or had the following: CHF DIAGNOSIS No Discharge Core Measures Meds if any: Prescribed or Continued at Discharge Meds if any: NOT Prescribed or Continued at Discharge Cerebrovascular accident Inclusion Criteria At DC or during hospital stay patient has or had the following: CVA/TIA Diagnosis No Discharge Core Measures Meds if any: Prescribed or Continued at Discharge Meds if any: NOT Prescribed or Continued at Discharge Venous thromboembolism Inclusion Criteria VTE Diagnosis No VTE Type NONE VTE Confirmed by (Test) NONE Discharge Core Measures - Per Current guidelines, there needs to be overlap - treatment for the first 5 days of Warfarin therapy. - If discharged on Warfarin prior to 5 days of - overlap therapy, the patient will need to be - assessed for post discharge needs including - *Post discharge parental anticoagulation - *Warfarin and/or parental anticoagulation education - *Follow up date to check INR post discharge At least 5 days overlap therapy as Inpatient No Meds if any: Prescribed or Continued at Discharge Note: Overlap Therapy is Warfarin and Anticoagulant Meds if any: NOT Prescribed or Continued at Discharge
--- NOTE | 2017-10-21 08:32 | PN- Endocrinology ---
Assessment/Plan Endoscopy Assessment: She is being treated for relative adrenal insufficiency. She was on hydrocortisone in the form of Solu-Cortef 50 mg IV every 8 hours as well as Florinef 0.1 mg daily. Her blood pressure was much improved. And then hydrocortisone was reduced to 25 mg twice a day by mouth on 10/20. Plan: 1. Further reduce hydrocortisone to 15 mg in the a.m. before breakfast and 5 mg in the p.m. at suppertime every day. 2. Continue fludrocortisone 0.1 mg daily. 3. Continue to monitor postural blood pressures. 4. after discharge, f/u in office with Dr. Stewart for follow up and further evaluation. Subjective Subjective: She has been feeling better. Objective Last 24 Hrs of Vital Signs/I&O Vital Signs Date Time Temp Pulse Resp B/P B/P Pulse O2 O2 Flow FiO2 Mean Ox Delivery Rate 10/21 0626 98.1 53 20 116/60 96 Room Air 10/20 2207 98.7 57 20 112/68 97 Room Air 10/20 1419 98.4 68 18 108/60 97 Room Air
[2017-10-21] MEDS ORDERED: MELATONIN3 M4 PO (10:19)
[2017-10-21] MEDS ORDERED: TRUFORM COMPRE1 EAC1 OTHER ×2 (10:27→10:52)
--- NOTE | 2017-10-21 11:58 | PN- Att Addend ---
Attending Addendum Attending Brief Note Patient seen and examined. Plan of care discussed with the medical team and the patient. Available lab work and radiology test reports were reviewed. Patient feeling much better and denies any new complaints. She wants to go home today. Her blood pressure is better controlled. No dizziness. Exam: General: Patient awake alert oriented without any distress CVS: S1 plus S2 without any murmur or gallops Chest: Few scattered crepitation without any wheeze. There is no respiratory distress. 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 * Early Parkinson's disease? Patient will need follow-up with neurology Plan * Recheck orthostatics * Contin fludrocortisone; contin hydrocortisone for one more dose as per endocrinology * She should follow with neurology as outpatient to workup early Parkinson's disease * Will discontinue zolpidem and instead will use melatonin for sleep at night * Pt stable for DC home today Current Medications Sig/Danielle Start time Last Medication Dose Route Stop Time Status Admin Acetaminophen 650 MG Q6P PRN 10/17 2029 DCD PO Enoxaparin Sodium 40 MG DAILY 10/18 0900 DCD 10/21 SC 0802 Fludrocortisone 100 MCG DAILY 10/20 0900 DCD 10/21 Acetate PO 0802 Hydrocortisone 5 MG ONCE ONE 10/21 1800 DCD PO 10/21 1801 Hydrocortisone 15 MG ONCE ONE 10/21 0700 DC 10/21 PO 10/21 0701 0546 Hydrocortisone 25 MG Q12 10/20 2100 DC 10/20 PO 2002 Hydrocortisone 50 MG Q8 10/18 2200 DC 10/20 Sodium Succinate IV 0530 Ibuprofen 600 MG Q6P PRN 10/17 2029 DCD PO Patient Medication 1 ED ONE ONE 10/21 1000 DC Teaching ED 10/21 1001 Laboratory Tests 10/20/17 0650: Aldosterone Pending 10/18/17 1519: Thyroglobulin Pending, Thyroid Peroxidase Ab < 28 10/18/17 1519: 25-OH Vitamin D Total 31.0, Free T4 1.08, Estradiol (E2) Level 19.4, Prolactin 10.7, Cortisol PM Sample 19.3 H, Thyroglobulin Antibody Pending, 21-Hydroxylase Antibody Pending Vital Signs Date Time Temp Pulse Resp B/P B/P Pulse O2 O2 Flow FiO2 Mean Ox Delivery Rate 10/21 0626 98.1 53 20 116/60 96 Room Air 10/20 2207 98.7 57 20 112/68 97 Room Air 10/20 1419 98.4 68 18 108/60 97 Room Air
== END 2017-10-21 11:33 | DRG 204 ==
LOC: ERH 16:57 → ERHI 19:22 → 2NB 19:22 → ENRESERV 20:25 → ENTRNSPT 21:49 → 2NB 22:07 → CMPTRNSPT 22:16 → 2NB 10-20 07:50 → ENPENDDIS 10-21 10:31 → ENTRNSPT 10-21 11:25 → 2NB 10-21 11:33 → EDTRNSPTSTS 10-21 11:34 → CMPTRNSPT 10-21 11:45
PROVIDERS: Emergency Medicine; Student in an Organized Health Care Education/Training Program
DX: I95.1 Orthostatic hypotension (principal); E27.49 Other adrenocortical insufficiency; W19.XXXA Unspecified fall, initial encounter; Z91.81 History of falling; E03.9 Hypothyroidism, unspecified; F41.9 Anxiety disorder, unspecified; F32.9 Major depressive disorder, single episode, unspecified; G31.84 Mild cognitive impairment of uncertain or unknown etiology; Z88.6 Allergy status to analgesic agent; Z88.5 Allergy status to narcotic agent; Z88.0 Allergy status to penicillin; Z88.2 Allergy status to sulfonamides; Z90.49 Acquired absence of other specified parts of digestive tract; Z90.710 Acquired absence of both cervix and uterus; Z66 Do not resuscitate; R63.4 Abnormal weight loss; E55.9 Vitamin D deficiency, unspecified
CPT/HCPCS: 2NBSP; 70551; 86800; 36592; 71046; 80307; 81001; 82436; 82670; 86376; 87389; 93005; 93010; 97116-GO; 97161-GP; G0480; J0834; J1650; J1720